=== PATIENT | female | born 1990 | race American Indian/Alaskan Native ===

== ENCOUNTER 2016-08-31 16:22 | Emergency (ER) | payer BC ==
[2016-08-31 16:44] VITALS: BP 133/69; PULSE 127; TEMP 98.1; BMI 29.2
[2016-08-31] MEDS ORDERED: OXYCODONE/APAP 5/325MG COMBO TABLET PO ONE (17:22)
[2016-08-31] MEDS ORDERED: OXYCODONE/APAP 5/325MG COMBO TABLET ONE (17:34)
--- NOTE | 2016-08-31 18:04 | PDOC ---
History of Present Illness - General Chief Complaint: Burn Stated Complaint: LT HAND BURN Time Seen by Provider: 08/31/16 17:11 History Source: Patient Exam Limitations: No Limitations - History of Present Illness Initial Comments: 08/31/16 17:59 pain to left ring finger post burn with hot glue today Occurred: reports: just prior to arrival Severity: reports: mild Pain Location: reports: upper extremity (finger) Past History - Past Medical History Allergies/Adverse Reactions: Allergies Allergy/AdvReac Type Severity Reaction Status Date / Time No Known Allergies Allergy Verified 08/31/16 16:40 Home Medications: Ambulatory Orders Amox-Tr/K Cl [Augmentin - 875Mg Tablet] 1 tab PO BID #14 tablet 08/31/16 Other medical history: DENIES. - Psycho/Social/Smoking Cessation Hx Anxiety: No Suicidal Ideation: No Smoking History: Never smoked Hx Alcohol Use: No Drug/Substance Use Hx: No Substance Use Type: None Review of Systems - Review of Systems Constitutional: No: Symptoms Reported HEENTM: No: Symptoms Reported Respiratory: No: Symptoms reported Musculoskeletal: Yes: Joint Pain, Other. No: Symptoms Reported, Joint Swelling Integumentary: Yes: Other (broken blister to dorsal area ST over middle phalange ; MOves) Neurological: No: Symptoms reported *Physical Exam - Vital Signs Last Vital Signs Temp Pulse Resp BP Pulse Ox 98.1 F 127 H 22 133/69 99 08/31/16 16:40 08/31/16 16:40 08/31/16 16:40 08/31/16 16:40 08/31/16 16:40 - Physical Exam General Appearance: Yes: Appropriately Dressed HEENT: positive: TMs Normal, Pharynx Normal Respiratory/Chest: positive: Lungs Clear Extremity: positive: Other (open blister to dorsal surface ST over middle phalange; FROM of PIP/ DIP; volar surfaces clear) ED Treatment Course - ADDITIONAL ORDERS Additional order review: Laboratory Results 08/31/16 17:26 Urine HCG, Qual Negative - Medications Given in the ED: ED Medications Discontinued Medications Generic Name Dose Route Start Last Admin Trade Name Freq PRN Reason Stop Dose Admin Oxycodone/Acetaminophen 1 combo 08/31/16 17:22 08/31/16 17:35 Percocet 5/325 - PO 08/31/16 17:23 1 combo ONCE ONE Administration Medical Decision Making - Medical Decision Making 08/31/16 18:[address] pt on augmentin as per LMD Dr Carpenter *DC/Admit/Observation/Transfer Diagnosis at time of Disposition: Burn of finger Qualifiers: Encounter type: initial encounter Laterality: left Burn degree: second degree Qualified Code(s): T23.222A - Burn of second degree of single left finger (nail ) except thumb, initial encounter - Discharge Dispostion Disposition: HOME Condition at time of disposition: Stable Admit: No - Patient Instructions Additional Instructions: please see local MD in 2 days for wound check; advcil for pain - Post Discharge Activity Work/School Note: Back to Work
[2016-08-31] MEDS ORDERED: SILVER SULFADIAZINE 1% TOP CREAM 50 GM JAR TP ONE (18:10)
[2016-08-31] MEDS ORDERED: SILVER SULFADIAZINE 1% TOP CREAM 50 GM JAR TP SCH (22:00)
== END 2016-08-31 18:30 | disposition home or self-care (01) ==
LOC: SUPCPDRO 16:22 → JERFT 16:22
PROC: 2W2KX4Z Dressing of Left Finger using Bandage (ICD-10-PCS; principal; 2016-08-31)
DX: T23.222A Burn of second degree of single left finger (nail) except thumb, initial encounter (principal); X19.XXXA Contact with other heat and hot substances, initial encounter; Y93.89 Activity, other specified; Y92.019 Unspecified place in single-family (private) house as the place of occurrence of the external cause
CPT/HCPCS: 84703; 99281-25

== ENCOUNTER 2016-11-08 13:30 | Emergency (ER) | payer BC ==
[2016-11-08 13:48] VITALS: BP 120/70; PULSE 98; TEMP 97.8; BMI 29.2
--- NOTE | 2016-11-08 14:31 | PDOC ---
History of Present Illness - General Chief Complaint: Bone Injury Stated Complaint: INJURY Time Seen by Provider: 11/08/16 13:54 History Source: Patient Exam Limitations: No Limitations - History of Present Illness Initial Comments: 11/08/16 14:23 CHIEF COMPLAINT: Left Elbow injury HISTORY OF PRESENT ILLNESS: Pt is a 26 year old female, presents to the ER for evaluation of right elbow pain after hitting it against the wall. Lateral elbow swelling, and bruise noted. Pain with ROM. 11/08/16 15:01 Past History - Past Medical History Allergies/Adverse Reactions: Allergies Allergy/AdvReac Type Severity Reaction Status Date / Time No Known Allergies Allergy Verified 11/08/16 13:43 Home Medications: Ambulatory Orders NK [No Known Home Medication] 11/08/16 Thyroid Disease: No Other medical history: denies domestic abuse - Psycho/Social/Smoking Cessation Hx Anxiety: No Suicidal Ideation: No Smoking History: Never smoked Have you smoked in the past 12 months: No Information on smoking cessation initiated: No Hx Alcohol Use: No Drug/Substance Use Hx: No Substance Use Type: None Review of Systems - Review of Systems Constitutional: No: Symptoms Reported HEENTM: No: Symptoms Reported Respiratory: No: Symptoms reported Cardiac (ROS): No: Symptoms Reported ABD/GI: No: Symptoms Reported : No: Symptoms Reported Musculoskeletal: Yes: Joint Pain, Joint Swelling Integumentary: Yes: Symptoms Reported, Bruising. No: Erythema Neurological: No: Symptoms reported, Paresthesia, Tingling, Tremors, Weakness All Other Systems: Reviewed and Negative *Physical Exam - Vital Signs Last Vital Signs Temp Pulse Resp BP Pulse Ox 97.8 F 98 H 18 120/70 100 11/08/16 13:41 11/08/16 13:41 11/08/16 13:41 11/08/16 13:41 11/08/16 13:41 - Physical Exam General Appearance: Yes: Appropriately Dressed. No: Apparent Distress Neck: negative: Tender lateral, Tender midline Respiratory/Chest: positive: Lungs Clear, Normal Breath Sounds Cardiovascular: positive: Regular Rhythm, Regular Rate Extremity: positive: Normal Capillary Refill, Normal Inspection Integumentary: positive: Erythema, Swelling, Bruising. negative: Ecchymosis Neurologic: positive: Alert, Normal Mood/Affect ED Treatment Course - RADIOLOGY Radiology Studies Ordered: Category Date Time Status ELBOW-LEFT [RAD] Stat Radiology 11/08/16 13:54 Taken Medical Decision Making - Medical Decision Making 11/08/16 15:02 A/P: Patient with left elbow pain, swelling and bruising, x-ray was negative for acute fracture patient given Motrin 600 mg. Sling placed on for comfort. Patient will follow up with Momo Thornton who she is seeing for finger injury. I discussed the physical exam findings, ancillary test results and final diagnoses with the patient. I answered all of the patient's questions. The patient was satisfied with the care received and felt comfortable with the discharge plan and treatment plan. The patient will call to arrange follow-up and will return to the Emergency Department with any new, persistent or worsening symptoms. *DC/Admit/Observation/Transfer Diagnosis at time of Disposition: Traumatic hematoma of left elbow Qualifiers: Encounter type: initial encounter Qualified Code(s): S50.02XA - Contusion of left elbow, initial encounter - Discharge Dispostion Disposition: HOME Condition at time of disposition: Stable Admit: No - Referrals Referrals: Sukhwinder Carpenter MD [Primary Care Provider] - Damian Barr MD [Staff Physician] - - Patient Instructions Printed Discharge Instructions: How to Use a Sling Additional Instructions: 1. Please return to the emergency department with any redness, swelling, increased pain, or any other concerns. 2. Keep splint on if pain 3. Please follow up in the office of Dr. Barr within a week if pain persists. 4. No weightbearing 5. Ice and elevate when at rest. 6. Motrin for pain - Post Discharge Activity Work/School Note: Back to Work
[2016-11-08] MEDS ORDERED: IBUPROFEN 600 MG TABLET (FP) PO ONE ×2 (14:43→14:46)
== END 2016-11-08 14:49 | disposition home or self-care (01) ==
LOC: JER 13:30 → JERFT 13:30
DX: S50.02XA Contusion of left elbow, initial encounter (principal); W22.8XXA Striking against or struck by other objects, initial encounter; Y93.9 Activity, unspecified; Y92.9 Unspecified place or not applicable
CPT/HCPCS: 73070-TC-LT; 99281-25

== ENCOUNTER 2019-02-09 16:26 | Inpatient (IN) | payer BC, OTHER ==
[2019-02-09] MEDS ORDERED: ONDANSETRON 4 MG/2 ML VIAL IVPB ONE (16:35)
[2019-02-09] MEDS ORDERED: SODIUM CHLORIDE 0.9% 500 ML INFUS.BAG IV ONE (16:35)
[2019-02-09] MEDS ORDERED: ACETAMINOPHEN 1000 MG/100 ML VIAL (NON FORMULARY) IVPB ONE (16:35)
--- NOTE | 2019-02-09 16:48 | PDOC ---
Rapid Medical Evaluation Chief Complaint: Nausea/Vomiting Time Seen by Provider: 02/09/19 16:31 Medical Evaluation: Allergies Allergy/AdvReac Type Severity Reaction Status Date / Time No Known Allergies Allergy Verified 02/09/19 16:30 02/09/19 16:32 28 year old NVD and right sided abdominal pain x1 week. patient noted to be febrile PE; patient alert ox3 RUQ pain on palpation A: Nausea, P: labs urine US LMP: 01/30/2019 02/09/19 16:48 Discharge Disposition - Diagnosis Nausea & vomiting Qualifiers: Vomiting type: unspecified Vomiting Intractability: unspecified Qualified Code( s): R11.2 - Nausea with vomiting, unspecified - Referrals Referrals: Sukhwinder Carpenter MD [Primary Care Provider] - - Patient Instructions - Post Discharge Activity
[2019-02-09 17:33] LABS: BASO % 0.8 % (0-2.0); EOS % 0.4 % (0-4.5); HEMATOCRIT 36.2 % (32.4-45.2); HEMOGLOBIN 11.7 GM/dL (10.7-15.3); LYMPH % 21.5 % (8-40); MCH 26.9 pg (25.7-33.7); MCHC 32.3 g/dl (32.0-36.0); MEAN CELL VOLUME 83.5 fl (80-96); MEAN PLT VOLUME 7.5 fl (7.5-11.1); MONO % 2.1 % (3.8-10.2); NEUT % 75.2 % (42.8-82.8); PLATELET COUNT 418 K/MM3 (134-434); RBC 4.33 M/mm3 (3.60-5.2); RDW 14.1 % (11.6-15.6); WHITE BLOOD COUNT 12.7 K/mm3 (4.0-10.0)
[2019-02-09] MEDS ORDERED: ONDANSETRON 4 MG/2 ML VIAL ONE (17:37)
[2019-02-09] MEDS ORDERED: ACETAMINOPHEN INJECTION 100 ML IVPB ONE (17:37)
[2019-02-09 17:40] LABS: EPI CELLS 10.2 /HPF (0-5/HPF); HYALINE CASTS 11 /lpf (0-8); PH,URINE 6.5 (5.0-8.0); URINE APPEARANCE CLEAR; URINE BACTERIA 80.3 /hpf (NEGATIVE); URINE BILIRUBIN 1+ (NEGATIVE); URINE COLOR DK YELLOW; URINE GLUCOSE (UA) NEGATIVE (NEGATIVE); URINE KETONE 1+ (NEGATIVE); URINE LEUK ESTERASE 2+ (NEGATIVE); URINE NITRITE NEGATIVE (NEGATIVE); URINE PROTEIN 1+ (NEGATIVE); URINE WBC 5 /hpf (0-5)
--- NOTE | 2019-02-09 17:59 | PDOC ---
History of Present Illness - General Chief Complaint: Nausea/Vomiting Stated Complaint: SENT BY DR. CARPENTER Time Seen by Provider: 02/09/19 16:31 History Source: Patient Exam Limitations: No Limitations - History of Present Illness Initial Comments: 02/09/19 18:05 28 yo F with no past medical hx presents to the emergency department with fevers , N/V/D without blood, and abdominal pain in the LLQ and epigastric region for 6 days. Per the patient, she has had multiple vomiting episodes per day since onset of symptoms and for the past 2 days developed dysuria. Per the patient, she last took DayQuil at 3 pm today. No abx usage. She visited her PMD today ( Dr. Carpenter) who referred her to the emergency department. Of note, drinking red Gatorade. Allergies: NKDA Social: Denies tobacco, alcohol, and substance abuse Shx: Tonsilectomy Past History - Past Medical History Allergies/Adverse Reactions: Allergies Allergy/AdvReac Type Severity Reaction Status Date / Time No Known Allergies Allergy Verified 02/09/19 16:30 Home Medications: Ambulatory Orders NK [No Known Home Medication] 11/08/16 COPD: No Thyroid Disease: No - Immunization History Immunization Up to Date: Yes - Suicide/Smoking/Psychosocial Hx Smoking History: Never smoked Have you smoked in the past 12 months: No Hx Alcohol Use: No Drug/Substance Use Hx: No Substance Use Type: None Review of Systems - Review of Systems Able to Perform ROS?: Yes Is the patient limited Japanese proficient: No Constitutional: Yes: Fever. No: Chills, Diaphoresis, Weakness HEENTM: No: Eye Pain, Ear Pain, Nose Pain, Tinnitus, Throat Pain, Mouth Pain Respiratory: No: Cough, Shortness of Breath, Hemoptysis Cardiac (ROS): No: Chest Pain, Lightheadedness, Palpitations, Syncope, Chest Tightness ABD/GI: Yes: Diarrhea, Nausea, Poor Appetite, Poor Fluid Intake, Vomiting, Abdominal cramping. No: Constipated, Rectal Bleeding, Tarry Stools : Yes: Dysuria. No: Burning, Hematuria, Incontinence Musculoskeletal: No: Back Pain, Joint Pain, Neck Pain Integumentary: No: Bruising, Erythema, Rash Neurological: No: Headache, Numbness, Tingling, Tremors Psychiatric: No: Change in Appetite Endocrine: No: Unexplained Weight Gain Hematologic/Lymphatic: No: Anemia *Physical Exam - Vital Signs Last Vital Signs Temp Pulse Resp BP Pulse Ox 102.2 F H 136 H 18 123/80 97 02/09/19 16:30 02/09/19 16:30 02/09/19 16:30 02/09/19 16:30 02/09/19 16:30 - Physical Exam General Appearance: Yes: Nourished, Appropriately Dressed. No: Apparent Distress, Intoxicated HEENT: positive: EOMI, NAJMA, Normal Voice, Symmetrical, Pharynx Normal, Hearing Grossly Normal. negative: Pale Conjunctivae, Scleral Icterus (R), Scleral Icterus (L), Muffled/Hoarse voice, Pharyngeal Erythema, Nasal Congestion, Rhinorrhea, Sinus Tenderness Neck: positive: Trachea midline, Supple. negative: Tender, Lymphadenopathy (R) , Lymphadenopathy (L), Tender lateral, Tender midline Respiratory/Chest: positive: Lungs Clear, Normal Breath Sounds. negative: Chest Tender, Respiratory Distress, Accessory Muscle Use, Crackles, Rales, Rhonchi, Stridor, Wheezing Cardiovascular: positive: Regular Rhythm, S1, S2, Tachycardia. negative: Systolic Murmur Gastrointestinal/Abdominal: positive: Normal Bowel Sounds, Tender (LLQ, epigastric, RUQ with positive murphys), Flat, Soft. negative: Distended, Guarding, Rebound Lymphatic: negative: Adenopathy Musculoskeletal: positive: Normal Inspection, CVA Tenderness (R), CVA Tenderness (L). negative: Vertebral Tenderness Extremity: positive: Normal Capillary Refill, Normal Inspection, Normal Range of Motion. negative: Tender, Swelling, Calf Tenderness Integumentary: positive: Normal Color, Dry, Other (hot to touch) Neurologic: positive: chicken sexer II-XII NML intact, Fully Oriented, Alert, Normal Mood/ Affect, Normal Response, Motor Strength 5/5. negative: EOM Palsy, Facial Droop , Numbness, Sensory Deficit ED Treatment Course - LABORATORY CBC & Chemistry Diagram: 02/09/19 16:57 02/09/19 16:57 - ADDITIONAL ORDERS Additional order review: Laboratory Results 02/09/19 02/09/19 16:57 16:57 Urine Color Dk yellow Urine Appearance Clear Urine pH 6.5 Ur Specific [place] 1.021 Urine Protein 1+ H Urine Glucose (UA) Negative Urine Ketones 1+ H Urine Blood 1+ H Urine Nitrite Negative Urine Bilirubin 1+ H Urine Urobilinogen 2.0 H Ur Leukocyte Esterase 2+ H Urine WBC (Auto) 5 Urine Casts (Auto) 11 U Epithel Cells (Auto) 10.2 Urine Bacteria (Auto) 80.3 Urine HCG, Qual Negative 02/09/19 16:57 RBC 4.33 MCV 83.5 MCHC 32.3 RDW 14.1 MPV 7.5 Neutrophils % 75.2 Lymphocytes % 21.5 Monocytes % 2.1 L Eosinophils % 0.4 Basophils % 0.8 - Medications Given in the ED: ED Medications Discontinued Medications Generic Name Dose Route Start Last Admin Trade Name Neeraj PRN Reason Stop Dose Admin Acetaminophen 1,000 mg 02/09/19 16:35 02/09/19 17:50 Ofirmev Injection - IVPB 02/09/19 16:36 1,000 mg ONCE ONE Administration Ondansetron HCl 4 mg 02/09/19 16:35 02/09/19 17:50 Zofran Injection IVPB 02/09/19 16:36 4 mg ONCE ONE Administration Sodium Chloride 1,000 ml 02/09/19 16:35 02/09/19 17:49 Normal Saline - IV 02/09/19 16:36 1,000 ml ONCE ONE Administration Medical Decision Making - Medical Decision Making 28 yo F with no past medical hx presents to the emergency department with fevers , N/V/D without blood, and abdominal pain in the LLQ and epigastric region for 6 days. Initial vitals: Initial Vital Signs Temp Pulse Resp BP Pulse Ox 102.2 F H 136 H 18 123/80 97 02/09/19 16:30 02/09/19 16:30 02/09/19 16:30 02/09/19 16:30 02/09/19 16:30 Work up: ddx: UTI vs pyelonephritis vs colitis vs cholelithiasis vs cholecystitis vs gastritis vs pancreatitis POCUS shows no GB wall thickening, no CBD dilatation, and no pericholecystic fluid. No cholelithiasis. Laboratory Tests 02/09/19 02/09/19 02/09/19 16:57 16:57 16:57 WBC 12.7 H RBC 4.33 Hgb 11.7 Hct 36.2 MCV 83.5 MCH 26.9 MCHC 32.3 RDW 14.1 Plt Count 418 MPV 7.5 Absolute Neuts (auto) 9.6 H Neutrophils % 75.2 Lymphocytes % 21.5 Monocytes % 2.1 L Eosinophils % 0.4 Basophils % 0.8 Nucleated RBC % 0 Sodium 136 Potassium 3.7 Chloride 101 Carbon Dioxide 25 Anion Gap 11 BUN 7.5 Creatinine 0.6 Est GFR (CKD-EPI)AfAm 145.80 Est GFR (CKD-EPI)NonAf 125.80 Random Glucose 84 Calcium 9.0 Total Bilirubin 0.7 AST 27 ALT 26 Alkaline Phosphatase 118 H Total Protein 8.0 Albumin 3.4 Lipase 77 Urine Color Urine Appearance Urine pH Ur Specific [place] Urine Protein Urine Glucose (UA) Urine Ketones Urine Blood Urine Nitrite Urine Bilirubin Urine Urobilinogen Ur Leukocyte Esterase Urine WBC (Auto) Urine RBC (Auto) Urine Casts (Auto) U Epithel Cells (Auto) U Sm Round Cell (Auto) Urine Bacteria (Auto) Urine Yeast (Auto) Urine HCG, Qual Negative Blood Type Antibody Screen 02/09/19 02/09/19 16:57 19:40 WBC RBC Hgb Hct MCV MCH MCHC RDW Plt Count MPV Absolute Neuts (auto) Neutrophils % Lymphocytes % Monocytes % Eosinophils % Basophils % Nucleated RBC % Sodium Potassium Chloride Carbon Dioxide Anion Gap BUN Creatinine Est GFR (CKD-EPI)AfAm Est GFR (CKD-EPI)NonAf Random Glucose Calcium Total Bilirubin AST ALT Alkaline Phosphatase Total Protein Albumin Lipase Urine Color Dk yellow Urine Appearance Clear Urine pH 6.5 Ur Specific [place] 1.021 Urine Protein 1+ H Urine Glucose (UA) Negative Urine Ketones 1+ H Urine Blood 1+ H Urine Nitrite Negative Urine Bilirubin 1+ H Urine Urobilinogen 2.0 H Ur Leukocyte Esterase 2+ H Urine WBC (Auto) 5 Urine RBC (Auto) 5-8 Urine Casts (Auto) 11 U Epithel Cells (Auto) 10.2 U Sm Round Cell (Auto) Negative Urine Bacteria (Auto) 80.3 Urine Yeast (Auto) Negative Urine HCG, Qual Blood Type B POSITIVE Antibody Screen Negative negative . UA shows UTI. Leukocytosis is 12.7. Patient's CT abdomen and pelvis shows "mildly increased fluid is seen within the large and possibly small bowel suggestive of current diarrheal illness. There is no obvious associated wall edema or perienteric/pericolonic edena". Of note the patient has interstitial thickening of acute or chronic nature in the lungs. Per the patient, she states she smokes hookah every 3 months. No exposure to industrial solvents or environments and did not travel overseas. 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 She continues to have a fever s/p 1 gram of tylenol and tachycardia. Will admit patient. EKG: Sinus tachycardia without ST elevation or depression Dispo: Admit 02/09/19 21:57 02/09/19 22:11 *DC/Admit/Observation/Transfer Diagnosis at time of Disposition: Nausea & vomiting Qualifiers: Vomiting type: unspecified Vomiting Intractability: unspecified Qualified Code( s): R11.2 - Nausea with vomiting, unspecified - Referrals Referrals: Sukhwinder Carpenter MD [Primary Care Provider] - - Patient Instructions - Post Discharge Activity
[2019-02-09] MEDS ORDERED: SODIUM CHLORIDE 1,000 ML IV STA ×2 (18:01)
[2019-02-09 18:04] LABS: YEAST NEGATIVE (NEGATIVE)
[2019-02-09 18:07] LABS: ALBUMIN 3.4 g/dl (3.4-5.0); BILIRUBIN,TOTAL 0.7 mg/dL (0.2-1); BLOOD UREA NITROGEN 7.5 mg/dL (7-18); CREATININE 0.6 mg/dL (0.55-1.3); POTASSIUM 3.7 mmol/L (3.5-5.1)
--- NOTE | 2019-02-09 18:33 | PDOC ---
Documentation entered by Andreas Liu SCRIBE, acting as scribe for Yenny Ramsey DO. Yenny Ramsey, : This documentation has been prepared by the Alexa ortega Xhesika, SCRIBE, under my direction and personally reviewed by me in its entirety. I confirm that the documentation accurately reflects all work, treatment, procedures, and medical decision making performed by me. Attending Attestation - Resident Resident Name: Dash Balderrama - ED Attending Attestation I have performed the following: I have examined & evaluated the patient, The case was reviewed & discussed with the resident, I agree w/resident's findings & plan, Exceptions are as noted - HPI HPI: 02/09/19 18:15 The patient is a 28 year old female with no significant PMH of who presents to the emergency department for 1 week of nausea, nbnb vomiting, non bloody diarrhea, and fever. The patient reports she has been drinking Gatorade and water. Patient notes she endorses epigastric pain, LLQ pain, R CVA tenderness, and dysuria. The patient denies chest pain, shortness of breath, headache and dizziness. Denies chills, cough, and constipation. Denies, frequency, urgency and hematuria. Allergies: NKDA Past surgical history: tonsillectomy PCP: Dr. Carpenter - Physicial Exam PE: 02/09/19 18:16 GENERAL: Awake, alert, and fully oriented, in no acute distress HEAD: No signs of trauma EYES: PERRLA, EOMI, sclera anicteric, conjunctiva clear ENT: Auricles normal inspection, hearing grossly normal, nares patent, oropharynx clear without exudates. (+) dry mucosa LUNGS: Breath sounds equal, clear to auscultation bilaterally. No wheezes, and no crackles HEART: (+) tachy., normal S1 and S2, no murmurs, rubs or gallops ABDOMEN: Soft, nontender, normoactive bowel sounds. No guarding, no rebound. No masses EXTREMITIES: (+) LLQ tenderness. (+) Epigastric tenderness. (+) R CVA tenderness. Normal range of motion, no edema. No clubbing or cyanosis. No cords , erythema. NEUROLOGICAL: Cranial nerves II through XII grossly intact. Normal speech, normal gait SKIN: (+) Warm to touch. Dry, normal turgor, no rashes or lesions noted - Medical Decision Making 02/09/19 18:29 I, Dr. Yenny Rasmey, DO, attest that this document has been prepared under my direction and personally reviewed by me in its entirety. I further attest, that it accurately reflects all work, treatment, procedures and medical decision -making performed by me. 02/09/19 18:29 a/p: 28yo female with no pmhx with a week of n/v/d and abd pain -pt with R flank pain, LLQ pain, and dysuria -pt with nbnb vomiting, no blood in stool -pt arrives with SIRS criteria -pt without recent abx -no vaginal complaints -concern for colitis vs uti with pyelo -bedside focused ultrasound of the RUQ was negative for acute kandis, no stones, no pericholecystic fluid, neg sono murphys -bedside ultrasound of the kidneys was neg for hydro -will send for ct imaging -labs sent, urine and urine culture, upreg -will give ivf hydration, tylenol 02/09/19 20:37 no acute findings on ct pt with uti abx ordered diarrhea illness on ct 02/09/19 20:39 pt now admits to contact with a pt with rickie recently at [facility] where she works will send cdiff stool sample will start flagyl 02/09/19 21:32 microblog sent to [facility] for admission 02/09/19 21:58 pt discussed the case with [facility] who accepts pt to service Heart Score/ECG Review - ECG Intrepretation Comment:: 02/09/19 18:33 sinus tach at 123, nl axis, nl interval, no acute st/t wave findings
[2019-02-09] MEDS ORDERED: CEFTRIAXONE 1,000 MG in DEXTROSE 5%-WATER - 50 ML IVPB ONE (19:26)
[2019-02-09] MEDS ORDERED: CEFTRIAXONE 1 GM/50 ML BAG ONE (19:49)
[2019-02-09] MEDS ORDERED: KETOROLAC TROMETHAMINE 15 MG/ML VIAL IVPUSH ONE (20:33)
[2019-02-09] MEDS ORDERED: KETOROLAC TROMETHAMINE 15 MG/ML VIAL ONE (21:58)
--- NOTE | 2019-02-09 22:13 | PN ---
Teaching Attending Note Name of Resident: Brown Cobos ATTENDING PHYSICIAN STATEMENT I saw and evaluated the patient. I reviewed the resident's note and discussed the case with the resident. I agree with the resident's findings and plan as documented. 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 Per the patient, she has had multiple vomiting episodes per day since onset of symptoms and for the past 2 days developed dysuria. Patient last took DayQuil at 3 pm today. No antibiotic usage. Believes she was exposed to a patient with C.diff infection. She visited her PMD today (Dr. Carpenter) who referred her to the ER and she has been drinking red Gatorade. Patient denies chest pain, shortness of breath, headache and dizziness. Denies chills, cough, and constipation. Denies, frequency, urgency and hematuria. Denies tobacco use, alcohol, and substance abuse. Has FH of DM. LMP was 01/30/19. OBJECTIVE: Alert Vital Signs Period Temp Pulse Resp BP Sys/Pena Pulse Ox Last 24 Hr 100.6 F-102.2 F 112-136 18-20 118-123/64-80 97-100 HEENT: No Jaundice, eye redness or discharge, PERRLA, EOMI. Normocephalic, atraumatic. External ears are normal and hearing is grossly intact. No nasal discharge. Neck: Supple, nontender. No palpable adenopathy or thyromegaly. No JVD Chest: Good effort. Clear to auscultation and percussion. Heart: Regular. No S3, rub or murmur Abdomen: Not distended, soft, LLQ, epigastric, and periumblical tenderness; no HSM. No rebound or guarding. Normal bowel sounds. Ext: Peripheral pulses intact. No leg edema. Skin: Warm and dry. No petechiae, rash or ecchymosis. Neuro: Alert. Oriented x3. CN 2-12 grossly intact. Sensation grossly intact in all four extremities and DTR are symmetric. Psych: Appropriate mood and affect. Good insight. Current Medications Generic Name Dose Route Start Last Admin Trade Name Freq PRN Reason Stop Dose Admin Enoxaparin Sodium 40 mg 02/10/19 10:00 Lovenox - SQ DAILY ADAM Sodium Chloride 1,000 mls @ 100 mls/hr 02/10/19 00:30 Normal Saline - IV ASDIR [facility] Home Medications Medication Instructions Recorded NK [No Known Home Medication] 11/08/16 Abnormal Lab Results 02/09/19 02/09/19 02/09/19 16:57 16:57 16:57 WBC 12.7 H Absolute Neuts (auto) 9.6 H Monocytes % 2.1 L Alkaline Phosphatase 118 H Urine Protein 1+ H Urine Ketones 1+ H Urine Blood 1+ H Urine Bilirubin 1+ H Urine Urobilinogen 2.0 H Ur Leukocyte Esterase 2+ H ASSESSMENT AND PLAN: 1. Sepsis due to ?UTI/Gastroenteritis - Likely has UTI though urine has only 5 WBCS. Preliminary report of CT scan of abdomen/pelvis showed fluid in the small intestine. Will continue Rocephin for IV and IV NS according to sepsis protocol. Etiology of gastroenteritis is unclear. Stool being sent for C.diff, WBCs, culture, ova and parasites. Will continue IV flagyl for possible C.Diff infection pending test result. EKG and CXR pending. Consult GI and ID. 2. Overweight Counseled on the risks associated with being overweight. Will provide patient all the necessary assistance, counseling and positive reinforcement to facilitate weight loss. Consult cartography professor. 3. DVT prophylaxis - Lovenox 40 mg SQ q 24 hours. 4. Advance directives - Full code
[2019-02-10] MEDS ORDERED: SODIUM CHLORIDE 1,000 ML IV SCH ×2 (00:30→06:25)
--- NOTE | 2019-02-10 02:44 | HP ---
CHIEF COMPLAINT: Diarrhea, vomiting, and abdominal pain in the umbilicus and RLQ for the past 1 week PCP: Dr. Carpenter HISTORY OF PRESENT ILLNESS: This is a 28 year old female with no significant PMH. She presented to the ER with complaints of diarrhea, vomiting, and abdominal pain in the umbilicus and RLQ for the past 1 week. The pain was gradual in onset, varies between 6-9/10 intensity, is described as being "dull", in intermittent in anture, non- radiating, with no recognized aggravating or alleviating factors. She has had diarrhea over the past week, described as dark in color, with 5-10 episodes per day, with no blood noticed, and has lost 7 pounds over the past week. She has also had multiple episodes of yellow vomiting, usually brought on by eating solid food. She has associated nausea and fever (recorded between 99-101 over several readings taken at home over the week). 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 She also complains of associated dysuria and urinary urgency over the past week. There are no associated complaints of dizziness, SOB, chest pain, constipation, or hematuria. ER course was notable for: (1) CTAP: fluid in small and large bowels consistet with diarrhea, but no edema noted (2) Ceftriaxone 1g/Metronidazole 500mg/3x N/S 1000 (3) T 010.8, Pulse 112 Recent Travel: None PAST MEDICAL HISTORY: None PAST SURGICAL HISTORY: None Social History: Smoking: denies Alcohol: denies Drugs: denies Family History: Both parents have DM Allergies No Known Allergies Allergy (Verified 02/09/19 16:30) HOME MEDICATIONS: Home Medications Medication Instructions Recorded NK [No Known Home Medication] 11/08/16 REVIEW OF SYSTEMS CONSTITUTIONAL: fever Absent: fever, chills, diaphoresis, generalized weakness, malaise, loss of appetite, weight change HEENT: Absent: rhinorrhea, nasal congestion, throat pain, throat swelling, difficulty swallowing, mouth swelling, ear pain, eye pain, visual changes CARDIOVASCULAR: Absent: chest pain, syncope, palpitations, irregular heart rate, lightheadedness , peripheral edema RESPIRATORY: Absent: cough, shortness of breath, dyspnea with exertion, orthopnea, wheezing, stridor, hemoptysis GASTROINTESTINAL:abdominal pain, nausea, vomiting, diarrhea Absent: abdominal pain, abdominal distension, nausea, vomiting, diarrhea, constipation, melena, hematochezia GENITOURINARY: dysuria, urgency Absent: dysuria, frequency, urgency, hesitancy, hematuria, flank pain, genital pain MUSCULOSKELETAL: Absent: myalgia, arthralgia, joint swelling, back pain, neck pain SKIN: Absent: rash, itching, pallor HEMATOLOGIC/IMMUNOLOGIC: Absent: easy bleeding, easy bruising, lymphadenopathy, frequent infections ENDOCRINE: Absent: unexplained weight gain, unexplained weight loss, heat intolerance, cold intolerance NEUROLOGIC: Absent: headache, focal weakness or paresthesias, dizziness, unsteady gait, seizure, mental status changes, bladder or bowel incontinence PSYCHIATRIC: Absent: anxiety, depression, suicidal or homicidal ideation, hallucinations. PHYSICAL EXAMINATION Vital Signs - 24 hr 02/09/19 02/09/19 02/10/19 16:30 19:55 00:20 Temperature 102.2 F H 101.8 F H 100.6 F H Pulse Rate 136 H Pulse Rate [ 112 H Right Radial] Respiratory 18 20 Rate Blood Pressure 123/80 Blood Pressure 118/64 [Left Arm] O2 Sat by Pulse 97 100 Oximetry (%) GENERAL: Awake, alert, and fully oriented, in no acute distress. HEAD: Normal with no signs of trauma. EYES: Pupils equal, round and reactive to light, extraocular movements intact, sclera anicteric, conjunctiva clear. No lid lag. EARS, NOSE, THROAT: Ears normal, nares patent, oropharynx clear without exudates. Moist mucous membranes. NECK: Normal range of motion, supple without lymphadenopathy, JVD, or masses. LUNGS: Breath sounds equal, clear to auscultation bilaterally. No wheezes, and no crackles. No accessory muscle use. HEART: Regular rate and rhythm, normal S1 and S2 without murmur, rub or gallop. ABDOMEN: Soft, mild tenderness in RLQ, no CVA tenderness, no hepatomegaly or splenomegaly. MUSCULOSKELETAL: Normal range of motion at all joints. No bony deformities or tenderness. No CVA tenderness. UPPER EXTREMITIES: 2+ pulses, warm, well-perfused. No cyanosis. No clubbing. No peripheral edema. LOWER EXTREMITIES: 2+ pulses, warm, well-perfused. No calf tenderness. No peripheral edema. NEUROLOGICAL: Cranial nerves II-XII intact. Normal speech. Normal gait. PSYCHIATRIC: Cooperative. Good eye contact. Appropriate mood and affect. SKIN: Warm, dry, normal turgor, no rashes or lesions noted, normal capillary refill. Laboratory Results - last 24 hr 02/09/19 02/09/19 02/09/19 16:57 16:57 16:57 WBC 12.7 H RBC 4.33 Hgb 11.7 Hct 36.2 MCV 83.5 MCH 26.9 MCHC 32.3 RDW 14.1 Plt Count 418 MPV 7.5 Absolute Neuts (auto) 9.6 H Neutrophils % 75.2 Lymphocytes % 21.5 Monocytes % 2.1 L Eosinophils % 0.4 Basophils % 0.8 Nucleated RBC % 0 Sodium 136 Potassium 3.7 Chloride 101 Carbon Dioxide 25 Anion Gap 11 BUN 7.5 Creatinine 0.6 Est GFR (CKD-EPI)AfAm 145.80 Est GFR (CKD-EPI)NonAf 125.80 Random Glucose 84 Calcium 9.0 Total Bilirubin 0.7 AST 27 ALT 26 Alkaline Phosphatase 118 H Total Protein 8.0 Albumin 3.4 Lipase 77 Urine Color Urine Appearance Urine pH Ur Specific [place] Urine Protein Urine Glucose (UA) Urine Ketones Urine Blood Urine Nitrite Urine Bilirubin Urine Urobilinogen Ur Leukocyte Esterase Urine WBC (Auto) Urine RBC (Auto) Urine Casts (Auto) U Epithel Cells (Auto) U Sm Round Cell (Auto) Urine Bacteria (Auto) Urine Yeast (Auto) Urine HCG, Qual Negative Blood Type Antibody Screen 02/09/19 02/09/19 16:57 19:40 WBC RBC Hgb Hct MCV MCH MCHC RDW Plt Count MPV Absolute Neuts (auto) Neutrophils % Lymphocytes % Monocytes % Eosinophils % Basophils % Nucleated RBC % Sodium Potassium Chloride Carbon Dioxide Anion Gap BUN Creatinine Est GFR (CKD-EPI)AfAm Est GFR (CKD-EPI)NonAf Random Glucose Calcium Total Bilirubin AST ALT Alkaline Phosphatase Total Protein Albumin Lipase Urine Color Dk yellow Urine Appearance Clear Urine pH 6.5 Ur Specific [place] 1.021 Urine Protein 1+ H Urine Glucose (UA) Negative Urine Ketones 1+ H Urine Blood 1+ H Urine Nitrite Negative Urine Bilirubin 1+ H Urine Urobilinogen 2.0 H Ur Leukocyte Esterase 2+ H Urine WBC (Auto) 5 Urine RBC (Auto) 5-8 Urine Casts (Auto) 11 U Epithel Cells (Auto) 10.2 U Sm Round Cell (Auto) Negative Urine Bacteria (Auto) 80.3 Urine Yeast (Auto) Negative Urine HCG, Qual Blood Type B POSITIVE Antibody Screen Negative ASSESSMENT/PLAN: # Sepsis 2/2 gastroenteritis - CTAP: fluid in small and large bowels consistet with diarrhea, but no edema noted - WBC 12.7 - C Diff, stool cx, and blood cx, urine cx sent - Will continue Ceftriaxone 1g and Metronidazole 500mg until stool culture - ID consult placed - GI consult placed #UTI - UA: LE 2+ (5 WBC and 80 Bacteria, so suspicion of UTI as cause of sepsis is low) - POC US in ER showed no hydronephrosis #Elevated ALP - POC US in ER showed no GB thickening, no CBD thickening, no chlolelithiasis #FEN - N/S @ 100 (3x 1000 N/S given in ER) - Mg, Phos ordered - Clear liquid diet #DVT PE - Lovenox 40mg #Code Status - Full code Visit type - Emergency Visit Emergency Visit: Yes ED Registration Date: 02/09/19 Care time: The patient presented to the Emergency Department on the above date and was hospitalized for further evaluation of their emergent condition. - New Patient This patient is new to me today: Yes Date on this admission: 02/10/19 - Critical Care Critical Care patient: No ATTENDING PHYSICIAN STATEMENT I saw and evaluated the patient. I reviewed the resident's note and discussed the case with the resident. I agree with the resident's findings and plan as documented. SUBJECTIVE: OBJECTIVE: ASSESSMENT AND PLAN:
[2019-02-10] MEDS ORDERED: ACETAMINOPHEN 325 MG TABLET (FP) ONE (06:56)
[2019-02-10 07:26] LABS: BASO % 0.3 % (0-2.0); EOS % 0.2 % (0-4.5); HEMATOCRIT 29.4 % (32.4-45.2); HEMOGLOBIN 9.8 GM/dL (10.7-15.3); LYMPH % 19.7 % (8-40); MCH 27.2 pg (25.7-33.7); MCHC 33.1 g/dl (32.0-36.0); MEAN CELL VOLUME 82.2 fl (80-96); MEAN PLT VOLUME 7.3 fl (7.5-11.1); MONO % 2.2 % (3.8-10.2); NEUT % 77.6 % (42.8-82.8); PLATELET COUNT 341 K/MM3 (134-434); RBC 3.58 M/mm3 (3.60-5.2); RDW 13.9 % (11.6-15.6); WHITE BLOOD COUNT 9.4 K/mm3 (4.0-10.0)
[2019-02-10] MEDS: ACETAMINOPHEN 325 MG TABLET (FP) PO PRN ×2 (07:55→18:24)
[2019-02-10 07:59] LABS: ALBUMIN 2.5 g/dl (3.4-5.0); BILIRUBIN,TOTAL 0.5 mg/dL (0.2-1); BLOOD UREA NITROGEN 4.6 mg/dL (7-18); CALCIUM 7.3 mg/dL (8.5-10.1); CREATININE 0.6 mg/dL (0.55-1.3); MAGNESIUM 2.3 mg/dL (1.8-2.4); PHOSPHOROUS 1.7 mg/dL (2.5-4.9); POTASSIUM 3.2 mmol/L (3.5-5.1)
[2019-02-10] MEDS ORDERED: CEFTRIAXONE 1,000 MG in DEXTROSE 5%-WATER - 50 ML IVPB SCH (10:00)
[2019-02-10] MEDS ORDERED: CEFTRIAXONE 1 GM/50 ML BAG ONE (10:16)
--- NOTE | 2019-02-10 10:30 | PN ---
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
[2019-02-10] MEDS: SODIUM CHLORIDE 0.9%/KCL 20 MEQ/1,000 ML INFUS.BAG IV SCH (10:39)
[2019-02-10] MEDS: ENOXAPARIN NA (PORCINE) 40 MG/0.4 ML DISP.SYRIN SQ SCH (10:39)
[2019-02-10] MEDS ORDERED: VANCOMYCIN 250 MG/5 ML ORAL SOLUTION PO SCH (12:00)
--- NOTE | 2019-02-10 12:14 | CON.GI ---
Consult Consult Specialty:: 0 Referred by:: Hospitalist Service Reason for Consultation:: Diarrhea - History of Present Illness Chief Complaint: Diarrhea History of Present Illness: 28F admitted through [facility] ER for evaluation of persistent nausea, vomiting and diarrhea. She states that she was in her USOH up until 7 days ago, when her symptoms began. The vomiting was non-bloody, non-bilious and has let up somewhat. She did vomit a small amount last night. The diarrhea has been described as non-bloody,watery, awakening her at night and occurring upwards of 5-8 times per day and describes as high volume. She has lost 8 pounds during this time. She denies recent travel, antibiotic use, OTC supplements, sick contacts with similar complaints, change in dietary habits. 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 There has been no associated rectal bleeding or bloody diarrhea, tenesmus, abdominal pain. She has had chills and fevers through the course and was noted to be 103F. Blood cx is + for gram + bacilli. She had a leukocytosis on admission with WBC 12k that has normalized. She had a CT scan of the abdomen and pelvis with IV contrast only that failed to reveal significant colitis or small bowel thickening. There was fluid in the colon and small bowel suggestive of a diarrhea process. - History Source History Provided By: Patient Limitations to Obtaining History: No Limitations - Past Medical History Additional Medical History: Denies - Past Surgical History Additional Surgical History: Denies - Alcohol/Substance Use Hx Alcohol Use: No - Smoking History Smoking history: Never smoked Have you smoked in the past 12 months: No - Social History Usual Living Arrangement: With Parent ADL: Independent Occupation: Nurse: Works at [employer] Place of : [employer] History of Recent Travel: No Home Medications - Allergies Allergies/Adverse Reactions: Allergies Allergy/AdvReac Type Severity Reaction Status Date / Time No Known Allergies Allergy Verified 02/09/19 16:30 - Home Medications Home Medications: Ambulatory Orders NK [No Known Home Medication] 11/08/16 Family Disease History - Family Disease History Family Disease History: Other: Father (Alive: healthy), Mother (Alive: healthy) , Sister (2, healthy) Other Family History: No children. No family history of colorectal cancer, IBD, Celiac disease Review of Systems - Review of Systems Constitutional: reports: Chills, Fever. denies: Night Sweats Cardiovascular: denies: Chest Pain Respiratory: denies: Cough Gastrointestinal: reports: Diarrhea, Vomiting. denies: Abdominal Pain, Rectal Bleeding, Vomiting Blood Physical Exam-GI Vital Signs: Vital Signs Temperature 98.1 F 02/10/19 11:15 Pulse Rate 102 H 02/10/19 11:15 Respiratory Rate 16 02/10/19 11:15 Blood Pressure 116/65 02/10/19 11:15 O2 Sat by Pulse Oximetry (%) 99 02/10/19 11:15 Constitutional: Yes: Calm Eyes: No: Sclera Icterus Cardiovascular: Yes: Tachycardia (regular rhtythm). No: Murmur Respiratory: Yes: CTA Bilaterally Gastrointestinal Inspection: No: Distention, Scars ...Auscultate: Yes: Normoactive Bowel Sounds ...Palpate: Yes: Soft, Tenderness (Mild TTP along LLQ and LUQ). No: Hepatomegaly, Splenomegaly ...Percussion: No: Tympanitic Edema: No (No LE edema) Neurological: Yes: Alert Labs: CBC, BMP 02/10/19 07:00 02/10/19 07:00 Hepatic Panel Total Bilirubin 0.5 mg/dL (0.2-1) 02/10/19 07:00 AST 30 U/L (15-37) 02/10/19 07:00 ALT 24 U/L (13-61) 02/10/19 07:00 Alkaline Phosphatase 98 U/L (45-117) 02/10/19 07:00 Albumin 2.5 g/dl (3.4-5.0) L 02/10/19 07:00 Imaging - Results Cat Scan: Report Reviewed, Image Reviewed Problem List - Problems (1) Vomiting and diarrhea Assessment/Plan: with associated fevers. Anika appears well clinically but had continued fevers up until admission. Leukocystosis has improved. acuity of her symptoms favors an infectious etiology such as viral or bacterial process. The description of her diarrhea favors small bowel origin as opposed to a colonic source such as colitis. ? if the + blood culture will sultana out to be related to her current clinical picture. Stool culture is pending as well as C. Diff. Legionella Ag has been collected Norovirus / rotavirus PCR stool studies have been ordered. I ordered stool for crypto / giardia Ag and fecal calprotectin. If diarrhea persists and there is no clear infectious etiology, flexible sigmoidoscopy would be undertaken to exclude an atypical presentation of inflammatory bowel disease. I have advanced her diet ID is following and has initiated infectious work-up as noted above We will follow along with you Code(s): R11.10 - VOMITING, UNSPECIFIED; R19.7 - DIARRHEA, UNSPECIFIED
[2019-02-10] MEDS ORDERED: AMPICILLIN SODIUM 2 GM VIAL ONE ×2 (12:59→18:10)
[2019-02-10] MEDS: AMPICILLIN - 2 GM in SODIUM CHLORIDE 100 ML IVPB SCH ×3 (13:00→22:13)
[2019-02-10] MEDS ORDERED: NAPH,MB-DB/K PH,MBDB POWDER PACKET PO SCH (14:00)
--- NOTE | 2019-02-10 14:05 | EKG ---
Test Reason : Blood Pressure : / mmHG Vent. Rate : 123 BPM Atrial Rate : 123 BPM P-R Int : 152 ms QRS Dur : 076 ms QT Int : 304 ms P-R-T Axes : 057 046 019 degrees QTc Int : 435 ms SINUS TACHYCARDIA NONSPECIFIC ST ABNORMALITY Confirmed by ALBERTO BARRAGAN MD ([id number]) on 02/10/2019 2:05:26 PM Referred By: Confirmed By:ALBERTO BARRAGAN MD
--- NOTE | 2019-02-10 15:59 | PN ---
Teaching Attending Note Name of Resident: Clark Moreira ATTENDING PHYSICIAN STATEMENT I saw and evaluated the patient. I reviewed the resident's note and discussed the case with the resident. I agree with the resident's findings and plan as documented with exceptions, below. SUBJECTIVE: patient seen and examined, Currently denies nausea, last episode of vomiting/ diarrhea, earlier this AM. Denies any abdominal pain, dark or bloody stools or vomitus. OBJECTIVE: Vital Signs Period Temp Pulse Resp BP Sys/Pena Pulse Ox Last 24 Hr 97.7 F-103.1 F 103-136 18-20 113-125/64-80 97-100 Intake & Output 02/07/19 02/08/19 02/09/19 02/10/19 23:59 23:59 23:59 23:59 Weight 154 lb General: sitting in bed in no acute distress Neck: soft, supple HEENT: PERRL, EOMI, moist mucous membrane CVS:S1S2 regular Chest: CTAB, no rales or wheezing Abdomen:soft, obese, mild LLQ tenderness, no voluntary or involuntary guarding or rigidity, pos bowel sounds Extremities: no edema Home Medications Medication Instructions Recorded NK [No Known Home Medication] 11/08/16 Active Medications Acetaminophen (Tylenol -) 650 mg PO Q6H PRN PRN Reason: PAIN OR FEVER Last Admin: 02/10/19 07:55 Dose: 650 mg Enoxaparin Sodium (Lovenox -) 40 mg SQ DAILY ADAM Last Admin: 02/10/19 10:39 Dose: 40 mg Ceftriaxone Sodium 1,000 mg/ (Dextrose) 50 mls @ 100 mls/hr IVPB DAILY ADAM Last Admin: 02/10/19 10:39 Dose: 100 mls/hr Potassium Chloride/Sodium Chloride (Ns+20 Meq Kcl -) 20 meq in 1,000 mls @ 125 mls/hr IV ASDIR ADAM Last Admin: 02/10/19 10:39 Dose: 125 mls/hr Metronidazole (Flagyl 500mg Premixed Ivpb -) 500 mg in 100 mls @ 100 mls/hr IVPB Q8H-IV ADAM Ampicillin Sodium 2 gm/ Sodium (Chloride) 100 mls @ 200 mls/hr IVPB Q6H-IV ADAM ; Protocol Last Admin: 02/10/19 13:00 Dose: 200 mls/hr Potassium Phos/Sodium Phos (Phos-Nak Packet -) 1 packet PO TID ADAM Stop: 02/11/19 06:01 Laboratory Results - last 24 hr 02/09/19 02/09/19 02/09/19 10:00 16:57 16:57 WBC 12.7 H RBC 4.33 Hgb 11.7 Hct 36.2 MCV 83.5 MCH 26.9 MCHC 32.3 RDW 14.1 Plt Count 418 MPV 7.5 Absolute Neuts (auto) 9.6 H Neutrophils % 75.2 Lymphocytes % 21.5 Monocytes % 2.1 L Eosinophils % 0.4 Basophils % 0.8 Nucleated RBC % 0 Sodium 136 Potassium 3.7 Chloride 101 Carbon Dioxide 25 Anion Gap 11 BUN 7.5 Creatinine 0.6 Est GFR (CKD-EPI)AfAm 145.80 Est GFR (CKD-EPI)NonAf 125.80 Random Glucose 84 Calcium 9.0 Phosphorus Magnesium Total Bilirubin 0.7 AST 27 ALT 26 Alkaline Phosphatase 118 H Total Protein 8.0 Albumin 3.4 Lipase 77 Urine Color Urine Appearance Urine pH Ur Specific [place] Urine Protein Urine Glucose (UA) Urine Ketones Urine Blood Urine Nitrite Urine Bilirubin Urine Urobilinogen Ur Leukocyte Esterase Urine WBC (Auto) Urine RBC (Auto) Urine Casts (Auto) U Epithel Cells (Auto) U Sm Round Cell (Auto) Urine Bacteria (Auto) Urine Yeast (Auto) Urine HCG, Qual Blood Type B POSITIVE Antibody Screen 02/09/19 02/09/19 02/09/19 16:57 16:57 19:40 WBC RBC Hgb Hct MCV MCH MCHC RDW Plt Count MPV Absolute Neuts (auto) Neutrophils % Lymphocytes % Monocytes % Eosinophils % Basophils % Nucleated RBC % Sodium Potassium Chloride Carbon Dioxide Anion Gap BUN Creatinine Est GFR (CKD-EPI)AfAm Est GFR (CKD-EPI)NonAf Random Glucose Calcium Phosphorus Magnesium Total Bilirubin AST ALT Alkaline Phosphatase Total Protein Albumin Lipase Urine Color Dk yellow Urine Appearance Clear Urine pH 6.5 Ur Specific [place] 1.021 Urine Protein 1+ H Urine Glucose (UA) Negative Urine Ketones 1+ H Urine Blood 1+ H Urine Nitrite Negative Urine Bilirubin 1+ H Urine Urobilinogen 2.0 H Ur Leukocyte Esterase 2+ H Urine WBC (Auto) 5 Urine RBC (Auto) 5-8 Urine Casts (Auto) 11 U Epithel Cells (Auto) 10.2 U Sm Round Cell (Auto) Negative Urine Bacteria (Auto) 80.3 Urine Yeast (Auto) Negative Urine HCG, Qual Negative Blood Type B POSITIVE Antibody Screen Negative 02/10/19 02/10/19 07:00 07:00 WBC 9.4 RBC 3.58 L Hgb 9.8 L Hct 29.4 L D MCV 82.2 MCH 27.2 MCHC 33.1 RDW 13.9 Plt Count 341 MPV 7.3 L Absolute Neuts (auto) 7.3 Neutrophils % 77.6 Lymphocytes % 19.7 Monocytes % 2.2 L Eosinophils % 0.2 Basophils % 0.3 Nucleated RBC % 0 Sodium 138 Potassium 3.2 L Chloride 107 Carbon Dioxide 22 Anion Gap 8 BUN 4.6 L Creatinine 0.6 Est GFR (CKD-EPI)AfAm 145.80 Est GFR (CKD-EPI)NonAf 125.80 Random Glucose 107 H Calcium 7.3 L Phosphorus 1.7 L Magnesium 2.3 Total Bilirubin 0.5 AST 30 ALT 24 Alkaline Phosphatase 98 Total Protein 6.0 L Albumin 2.5 L Lipase Urine Color Urine Appearance Urine pH Ur Specific [place] Urine Protein Urine Glucose (UA) Urine Ketones Urine Blood Urine Nitrite Urine Bilirubin Urine Urobilinogen Ur Leukocyte Esterase Urine WBC (Auto) Urine RBC (Auto) Urine Casts (Auto) U Epithel Cells (Auto) U Sm Round Cell (Auto) Urine Bacteria (Auto) Urine Yeast (Auto) Urine HCG, Qual Blood Type Antibody Screen Microbiology 02/10/19 01:06 Stool Clostridioides difficile Antigen - Final 02/10/19 01:06 Stool Clostridioides difficile Toxin Assay - Final 02/10/19 09:59 Urine For Antigen Detection Legionella Antigen - Final 02/10/19 09:59 Urine For Antigen Detection Streptococcus pneumoniae Antigen (M - Final 02/09/19 21:20 Blood - Peripheral Venous Blood Culture - Preliminary Pending Organism CT A/p results and images reviewed ASSESSMENT AND PLAN: 28 yof with no significant PMHx admitted with fevers, vomiting, diarrhea for 1 week. -Sepsis -Vomitting/diarrhea, ?Listeria ?clostridium ?bacillus -Gram positive bacilli bacteremia 1/2 -Dehydration -Hypokalemia -Hypophosphatemia Plan: ID/Gi input noted blood/stool cultures. Stool WBC/Ova and Parasites Stool C difficile neg. Emperic ceftriaxone/flagyl/ampicillin. IVF replete K/phos DVTPPX lovenox Dispo pending clinical improvement. Discussed with patient and nursing.
--- NOTE | 2019-02-10 16:51 | PN ---
Physical Exam: SUBJECTIVE: Patient seen and examined at bedside. Pt is feeling better now than she was. OBJECTIVE: Vital Signs Period Temp Pulse Resp BP Sys/Pena Pulse Ox Last 24 Hr 97.7 F-103.1 F 103-136 18-20 113-125/64-80 97-100 Gen: AAOx3, NAD HEENT: NCAT, EOMI Neck: supple, no jvd Cardio: rrr, normal s1s2, no mrg Pulm: cta b/l Abd: soft, nontender, nondistended Ext: no edema Laboratory Results - last 24 hr 02/09/19 02/09/19 02/09/19 10:00 16:57 16:57 WBC 12.7 H RBC 4.33 Hgb 11.7 Hct 36.2 MCV 83.5 MCH 26.9 MCHC 32.3 RDW 14.1 Plt Count 418 MPV 7.5 Absolute Neuts (auto) 9.6 H Neutrophils % 75.2 Lymphocytes % 21.5 Monocytes % 2.1 L Eosinophils % 0.4 Basophils % 0.8 Nucleated RBC % 0 Sodium 136 Potassium 3.7 Chloride 101 Carbon Dioxide 25 Anion Gap 11 BUN 7.5 Creatinine 0.6 Est GFR (CKD-EPI)AfAm 145.80 Est GFR (CKD-EPI)NonAf 125.80 Random Glucose 84 Calcium 9.0 Phosphorus Magnesium Total Bilirubin 0.7 AST 27 ALT 26 Alkaline Phosphatase 118 H Total Protein 8.0 Albumin 3.4 Lipase 77 Urine Color Urine Appearance Urine pH Ur Specific Starbuck Urine Protein Urine Glucose (UA) Urine Ketones Urine Blood Urine Nitrite Urine Bilirubin Urine Urobilinogen Ur Leukocyte Esterase Urine WBC (Auto) Urine RBC (Auto) Urine Casts (Auto) U Epithel Cells (Auto) U Sm Round Cell (Auto) Urine Bacteria (Auto) Urine Yeast (Auto) Urine HCG, Qual Blood Type B POSITIVE Antibody Screen 02/09/19 02/09/19 02/09/19 16:57 16:57 19:40 WBC RBC Hgb Hct MCV MCH MCHC RDW Plt Count MPV Absolute Neuts (auto) Neutrophils % Lymphocytes % Monocytes % Eosinophils % Basophils % Nucleated RBC % Sodium Potassium Chloride Carbon Dioxide Anion Gap BUN Creatinine Est GFR (CKD-EPI)AfAm Est GFR (CKD-EPI)NonAf Random Glucose Calcium Phosphorus Magnesium Total Bilirubin AST ALT Alkaline Phosphatase Total Protein Albumin Lipase Urine Color Dk yellow Urine Appearance Clear Urine pH 6.5 Ur Specific Starbuck 1.021 Urine Protein 1+ H Urine Glucose (UA) Negative Urine Ketones 1+ H Urine Blood 1+ H Urine Nitrite Negative Urine Bilirubin 1+ H Urine Urobilinogen 2.0 H Ur Leukocyte Esterase 2+ H Urine WBC (Auto) 5 Urine RBC (Auto) 5-8 Urine Casts (Auto) 11 U Epithel Cells (Auto) 10.2 U Sm Round Cell (Auto) Negative Urine Bacteria (Auto) 80.3 Urine Yeast (Auto) Negative Urine HCG, Qual Negative Blood Type B POSITIVE Antibody Screen Negative 02/10/19 02/10/19 07:00 07:00 WBC 9.4 RBC 3.58 L Hgb 9.8 L Hct 29.4 L D MCV 82.2 MCH 27.2 MCHC 33.1 RDW 13.9 Plt Count 341 MPV 7.3 L Absolute Neuts (auto) 7.3 Neutrophils % 77.6 Lymphocytes % 19.7 Monocytes % 2.2 L Eosinophils % 0.2 Basophils % 0.3 Nucleated RBC % 0 Sodium 138 Potassium 3.2 L Chloride 107 Carbon Dioxide 22 Anion Gap 8 BUN 4.6 L Creatinine 0.6 Est GFR (CKD-EPI)AfAm 145.80 Est GFR (CKD-EPI)NonAf 125.80 Random Glucose 107 H Calcium 7.3 L Phosphorus 1.7 L Magnesium 2.3 Total Bilirubin 0.5 AST 30 ALT 24 Alkaline Phosphatase 98 Total Protein 6.0 L Albumin 2.5 L Lipase Urine Color Urine Appearance Urine pH Ur Specific Starbuck Urine Protein Urine Glucose (UA) Urine Ketones Urine Blood Urine Nitrite Urine Bilirubin Urine Urobilinogen Ur Leukocyte Esterase Urine WBC (Auto) Urine RBC (Auto) Urine Casts (Auto) U Epithel Cells (Auto) U Sm Round Cell (Auto) Urine Bacteria (Auto) Urine Yeast (Auto) Urine HCG, Qual Blood Type Antibody Screen Active Medications Generic Name Dose Route Start Last Admin Trade Name Freq PRN Reason Stop Dose Admin Acetaminophen 650 mg 02/10/19 06:23 02/10/19 07:55 Tylenol - PO 650 mg Q6H PRN Administration PAIN OR FEVER Enoxaparin Sodium 40 mg 02/10/19 10:00 02/10/19 10:39 Lovenox - SQ 40 mg DAILY ADAM Administration Ceftriaxone Sodium 1,000 mg/ 50 mls @ 100 mls/hr 02/10/19 10:00 02/10/19 10: 39 Dextrose IVPB 100 mls/hr DAILY ADAM Administration Potassium Chloride/Sodium Chloride 20 meq in 1,000 mls @ 125 mls/hr 02/10/19 09:00 02/10/19 10:39 Ns+20 Meq Kcl - IV 125 mls/hr ASDIR ADAM Administration Metronidazole 500 mg in 100 mls @ 100 mls/hr 02/10/19 18:00 Flagyl 500mg Premixed Ivpb - IVPB Q8H-IV ADAM Ampicillin Sodium 2 gm/ Sodium 100 mls @ 200 mls/hr 02/10/19 10:45 02/10/19 13:00 Chloride IVPB 200 mls/hr Q6H-IV ADAM Administration Protocol Potassium Phos/Sodium Phos 1 packet 02/10/19 14:00 Phos-Nak Packet - PO 02/11/19 06:01 TID ADAM ASSESSMENT/PLAN: Pt is a 28 y/o F with abdominal pain, profuse watery diarrhea, high fevers, one episode of vomiting for the past 6 days. #Diarrhea -pt describes exposure to C.diff -c.diff studies, stool for ova and parasites, stool culture, norovirus, rotavirus, parasites -getting coverage with ampicillin, rocephin, metronidazole, -ID on board -GI on board -pt refused HIV test Visit type - Emergency Visit Emergency Visit: No - New Patient This patient is new to me today: No - Critical Care Critical Care patient: No ATTENDING PHYSICIAN STATEMENT I saw and evaluated the patient. I reviewed the resident's note and discussed the case with the resident. I agree with the resident's findings and plan as documented. SUBJECTIVE: OBJECTIVE: ASSESSMENT AND PLAN:
--- NOTE | 2019-02-10 17:17 | CONS ---
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 She was admitted with vomiting, diarrhea, and fevers which she has had for over 1 week now. Her symptoms began last Wednesday. She attributed them to her menses, which she frequently gets diarrhea and does not feel like eating, but the symptoms continued after her menses ended. She was not using tampons. She has been taking DayQuil and no antibiotic. She worked until Wednesday with these symptoms. She reports foul-smelling, nonbloody, water, large-volume diarrhea. She has had fever to 103 and 104 at home. She notes left lower quadrant discomfort. She has no history of STD. She is sexually active. No vaginal discharge. There is no history of any travel or camping. No unpasteurized foods. She likes salads and cold cuts. She has had no sick contacts besides work. She was involved in a code of a residential patient who had C. difficile, but she was wearing gloves at that time. She has not taken any recent antibiotics. She has never been hospitalized. Her admission white count was 12,000, and blood culture 1 of 2 bottles is positive for gram-positive bacilli. She had a CAT scan of her abdomen and pelvis with IV contrast that did not show any significant colitis. There was fluid in the colon and small bowel suggestive of diarrhea. She has never had any surgery, and her past medical history is unremarkable. She lives with her family. There is no history of cigarette, alcohol, or substance use. FAMILY HISTORY: Both of her parents have diabetes. ALLERGIES: She has no known drug allergies. MEDICATIONS: She takes no medications. REVIEW OF SYSTEMS: Notable for the fever. She gets headache when she has fever but no photophobia or neck stiffness. She has no cough. She did have dysuria about 5 days ago that has resolved. PHYSICAL EXAMINATION: General: She is well appearing. Vital Signs: Temperature is 98. Her T-max overnight was 103.1. Pulse of 111, blood pressure 113/75, respiratory rate of 18. She is saturating 99% on room air. HEENT: She is normocephalic. Her eyes are anicteric. Neck: Supple. No meningeal signs. Lungs: Clear to auscultation. Heart: Regular rate and rhythm. Abdomen: Soft. She has mild left lower quadrant discomfort to palpation. She has no right upper quadrant or right lower quadrant pain. Extremities: She has no edema. Skin: She has no rash. LABORATORY: Her labs are notable white count on admission was 12.7. Repeat white count is 9.4. Hemoglobin is 9.8. Platelets are 341. Her chemistries are notable for a BUN and creatinine that were 7.5 and 0.6 on admission, with a bicarbonate of 25. Today her LFTs are normal, and her urinalysis has 1+ ketones, 1+ blood, 2+ leukocyte esterase, with 5 white cells. She has been started on ceftriaxone and Flagyl. CAT scan findings as previously stated. Chest x-ray is notable for increased interstitial markings. SUMMARY: This is a 28-year-old woman admitted with acute gastroenteritis, gram-positive bacteremia, concerns for listeria. Would continue IV fluids. Would follow up cultures, repeat blood cultures, stool cultures. Stool white cells are pending. Stool C. difficile is pending, though I doubt this. Would continue Rocephin and Flagyl for bacterial gastroenteritis. Would add ampicillin pending blood culture results. Should offer HIV testing as well. I have not had a chance to speak to the patient about this. Case was discussed with the resident on service. DAVIDA RUBIN M.D. [id number] MTDD
[2019-02-10] MEDS ORDERED: SODIUM PHOSPHATE - 0 MM in DEXTROSE 5%-WATER - 250 ML IVPB ONE (18:25)
[2019-02-10] MEDS ORDERED: POTASSIUM PHOSPHATE 15 MM in DEXTROSE 5%-WATER - 250 ML IVPB ONE (18:31)
[2019-02-11] MEDS: AMPICILLIN - 2 GM in SODIUM CHLORIDE 100 ML IVPB SCH ×2 (02:03→19:52)
[2019-02-11] MEDS ORDERED: ACETAMINOPHEN 1000 MG/100 ML VIAL (NON FORMULARY) IVPB ONE (05:27)
[2019-02-11] MEDS ORDERED: ONDANSETRON 4 MG/2 ML VIAL IVPB ONE (06:55)
[2019-02-11] MEDS ORDERED: DEXTROSE 5%-WATER - 50 ML IVPB ONE (09:26)
[2019-02-11] MEDS ORDERED: PT OWN MED DRAWER 7, Y5N ONE (09:26)
[2019-02-11] MEDS ORDERED: cefTRIAXone SODIUM 1 GM VIAL ONE (09:26)
[2019-02-11] MEDS: ENOXAPARIN NA (PORCINE) 40 MG/0.4 ML DISP.SYRIN SQ SCH (09:36)
[2019-02-11] MEDS: CEFTRIAXONE 1 GM in DEXTROSE 5%-WATER - 50 ML IVPB SCH (10:49)
--- NOTE | 2019-02-11 11:20 | PN ---
Progress Note, Physician History of Present Illness: STILL WITH DIARRHEA NON BLOODY NO C/O ABDOMINAL PAIN TEMPS DOWN BC BACILLUS SP C DIFF (-) STOOL C/S PENDING - Current Medication List Current Medications: Active Medications Acetaminophen (Tylenol -) 650 mg PO Q6H PRN PRN Reason: PAIN OR FEVER Last Admin: 02/10/19 18:24 Dose: 650 mg Enoxaparin Sodium (Lovenox -) 40 mg SQ DAILY ADAM Last Admin: 02/11/19 09:36 Dose: Not Given Potassium Chloride/Sodium Chloride (Ns+20 Meq Kcl -) 20 meq in 1,000 mls @ 125 mls/hr IV ASDIR ADAM Last Admin: 02/10/19 10:39 Dose: 125 mls/hr Metronidazole (Flagyl 500mg Premixed Ivpb -) 500 mg in 100 mls @ 100 mls/hr IVPB Q8H-IV ADAM Last Admin: 02/11/19 09:32 Dose: 100 mls/hr Ampicillin Sodium 2 gm/ Sodium (Chloride) 100 mls @ 200 mls/hr IVPB Q6H-IV ADAM ; Protocol Last Admin: 02/11/19 02:03 Dose: 200 mls/hr Ceftriaxone Sodium 1 gm/ (Dextrose) 50 mls @ 100 mls/hr IVPB DAILY ADAM Last Admin: 02/11/19 10:49 Dose: 100 mls/hr - Objective Vital Signs: Vital Signs Temperature 98.9 F 02/11/19 06:00 Pulse Rate 97 H 02/11/19 06:00 Respiratory Rate 20 02/11/19 06:00 Blood Pressure 118/64 02/11/19 06:00 O2 Sat by Pulse Oximetry (%) 95 02/11/19 00:04 Constitutional: Yes: No Distress Eyes: Yes: Conjunctiva Clear Cardiovascular: Yes: Regular Rate and Rhythm, S1, S2 Respiratory: Yes: CTA Bilaterally Gastrointestinal: Yes: Normal Bowel Sounds, Soft. No: Tenderness Edema: No Labs: CBC, BMP 02/10/19 07:00 02/10/19 07:00 Assessment/Plan ACUTE GASTROENTERITIS +BC = CONTAMINANT FEVER/ LEUKOCYTOSIS IMPROVED AZOTEMIA IMPROVED AWAIT STOOL C/S CONTINUE CEFTRIAXONE/ FLAGYL D/C AMPICILLIN
[2019-02-11 12:51] LABS: BASO % 0.2 % (0-2.0); EOS % 0.5 % (0-4.5); HEMATOCRIT 28.9 % (32.4-45.2); HEMOGLOBIN 9.4 GM/dL (10.7-15.3); LYMPH % 21.2 % (8-40); MCH 27.2 pg (25.7-33.7); MCHC 32.6 g/dl (32.0-36.0); MEAN CELL VOLUME 83.4 fl (80-96); MEAN PLT VOLUME 7.5 fl (7.5-11.1); MONO % 2.5 % (3.8-10.2); NEUT % 75.6 % (42.8-82.8); PLATELET COUNT 338 K/MM3 (134-434); RBC 3.46 M/mm3 (3.60-5.2); RDW 13.6 % (11.6-15.6); WHITE BLOOD COUNT 10.3 K/mm3 (4.0-10.0)
[2019-02-11 13:20] LABS: ALBUMIN 2.6 g/dl (3.4-5.0); BILIRUBIN,TOTAL 0.3 mg/dL (0.2-1); BLOOD UREA NITROGEN 3.3 mg/dL (7-18); CALCIUM 8.5 mg/dL (8.5-10.1); CREATININE 0.5 mg/dL (0.55-1.3); MAGNESIUM 2.6 mg/dL (1.8-2.4); PHOSPHOROUS 3.2 mg/dL (2.5-4.9); POTASSIUM 3.4 mmol/L (3.5-5.1); TOT PROT 6.4 g/dl (6.4-8.2)
--- NOTE | 2019-02-11 13:28 | PN ---
Physical Exam: SUBJECTIVE: Patient seen and examined, 1 episode of soft stool. No further vomiting, nausea improved, overall feels better. OBJECTIVE: Vital Signs Period Temp Pulse Resp BP Sys/Pena Pulse Ox Last 24 Hr 97.7 F-100.8 F 97-117 16-20 113-123/62-80 95-99 Intake & Output 02/08/19 02/09/19 02/10/19 02/11/19 23:59 23:59 23:59 23:59 Intake Total 2375 500 Output Total 50 Balance 2325 500 Weight 154 lb 159 lb 3.2 oz General: sitting in bed in no acute distress Neck: soft, supple HEENT: PERRL, EOMI, moist mucous membrane CVS:S1S2 regular Chest: CTAB, no rales or wheezing Abdomen:soft, obese,NT, ND, no voluntary or involuntary guarding or rigidity, pos bowel sounds Extremities: no edema Psych: pleasant, co-operative Laboratory Results - last 24 hr 02/11/19 02/11/19 11:37 11:37 WBC 10.3 H RBC 3.46 L Hgb 9.4 L Hct 28.9 L MCV 83.4 MCH 27.2 MCHC 32.6 RDW 13.6 Plt Count 338 MPV 7.5 Absolute Neuts (auto) 7.8 Neutrophils % 75.6 Lymphocytes % 21.2 Monocytes % 2.5 L Eosinophils % 0.5 D Basophils % 0.2 Nucleated RBC % 0 Sodium 141 Potassium 3.4 L Chloride 108 H Carbon Dioxide 27 Anion Gap 6 L BUN 3.3 L Creatinine 0.5 L Est GFR (CKD-EPI)AfAm 154.81 Est GFR (CKD-EPI)NonAf 133.57 Random Glucose 102 Calcium 8.5 Phosphorus 3.2 Magnesium 2.6 H Total Bilirubin 0.3 AST 18 ALT 24 Alkaline Phosphatase 99 Total Protein 6.4 Albumin 2.6 L Active Medications Generic Name Dose Route Start Last Admin Trade Name Freq PRN Reason Stop Dose Admin Acetaminophen 650 mg 02/10/19 06:23 02/10/19 18:24 Tylenol - PO 650 mg Q6H PRN Administration PAIN OR FEVER Enoxaparin Sodium 40 mg 02/10/19 10:00 02/11/19 09:36 Lovenox - SQ Not Given DAILY ADAM Potassium Chloride/Sodium Chloride 20 meq in 1,000 mls @ 125 mls/hr 02/10/19 09:00 02/10/19 10:39 Ns+20 Meq Kcl - IV 125 mls/hr ASDIR ADAM Administration Metronidazole 500 mg in 100 mls @ 100 mls/hr 02/10/19 18:00 02/11/19 09:32 Flagyl 500mg Premixed Ivpb - IVPB 100 mls/hr Q8H-IV ADAM Administration Ceftriaxone Sodium 1 gm/ 50 mls @ 100 mls/hr 02/11/19 08:30 02/11/19 10:49 Dextrose IVPB 100 mls/hr DAILY ADAM Administration Potassium Chloride 40 meq 02/11/19 13:25 K-Dur - PO 02/11/19 13:26 ONCE ONE Microbiology 02/10/19 01:06 Stool Salmonella/Shigella Culture - Preliminary NO ENTERIC PATHOGENS, 24 HOURS, ON PRIMARY PLATES 02/10/19 01:06 Stool Yersinia Culture - Preliminary NO ENTERIC PATHOGENS, 24 HOURS, ON PRIMARY PLATES 02/10/19 01:06 Stool Vibrio Culture - Preliminary NO ENTERIC PATHOGENS, 24 HOURS, ON PRIMARY PLATES 02/10/19 01:06 Stool Escherichia coli 0157 Culture - Preliminary NO ENTERIC PATHOGENS, 24 HOURS, ON PRIMARY PLATES 02/09/19 16:57 Urine - Urine Clean Catch Urine Culture - Final NO GROWTH OBTAINED 02/09/19 10:00 Blood - Peripheral Venous Blood Culture - Preliminary NO GROWTH OBTAINED AFTER 24 HOURS, INCUBATION TO CONTINUE FOR 4 DAYS. 02/09/19 21:20 Blood - Peripheral Venous Blood Culture - Final Bacillus Species, Not Antracis 02/10/19 01:06 Stool Gram Stain - Final 02/10/19 01:06 Stool Clostridioides difficile Antigen - Final 02/10/19 01:06 Stool Clostridioides difficile Toxin Assay - Final 02/10/19 09:59 Urine For Antigen Detection Legionella Antigen - Final 02/10/19 09:59 Urine For Antigen Detection Streptococcus pneumoniae Antigen (M - Final ASSESSMENT/PLAN: 28 yof with no significant PMHx admitted with fevers, vomiting, diarrhea for 1 week. -Sepsis -Vomitting/diarrhea, ?Listeria ?clostridium ?bacillus -Gram positive bacilli bacteremia likely contaminant -Dehydration -Hypokalemia -Hypophosphatemia Plan: ID/Gi input noted Clinically improved. ceftriaxone/flagyl. Off ampicillin. Stool C difficile neg. Follow up stool studies, repeat blood cx. IVF replete K DVTPPX lovenox Dispo in 24-48 hours if continues to improve. Discussed with patient and nursing. Visit type - Emergency Visit Emergency Visit: Yes ED Registration Date: 02/09/19 Care time: The patient presented to the Emergency Department on the above date and was hospitalized for further evaluation of their emergent condition. - New Patient This patient is new to me today: No - Critical Care Critical Care patient: No - Discharge Referral Referred to [facility] Med P.C.: No
[2019-02-11] MEDS ORDERED: POTASSIUM CHLORIDE TABS 20 MEQ TABLET.ER (FP) PO ONE (13:30)
[2019-02-11 17:39] VITALS: BMI 29.9
[2019-02-11] MEDS: SODIUM CHLORIDE 0.9%/KCL 20 MEQ/1,000 ML INFUS.BAG IV SCH ×2 (19:43→21:23)
--- NOTE | 2019-02-11 20:18 | PN.GI ---
GI Progress Note Subjective: States that she had an episode of vomiting 4 am this morning. Describes persistent diarrhea, somewhat more formed no fevers today - Objective Vital Signs: Vital Signs Temperature 98.7 F 02/11/19 18:11 Pulse Rate 104 H 02/11/19 18:11 Respiratory Rate 20 02/11/19 18:11 Blood Pressure 130/86 02/11/19 18:11 O2 Sat by Pulse Oximetry (%) 95 02/11/19 00:04 Constitutional: Calm Eyes: No: Sclera Icterus Cardiovascular: Yes: Regular Rate and Rhythm Respiratory: Yes: CTA Bilaterally Gastrointestinal Inspection: No: Distention ...Auscultate: Yes: Normoactive Bowel Sounds ...Palpate: Yes: Soft. No: Hepatomegaly, Splenomegaly, Tenderness ...Percussion: No: Tympanitic Edema: No (No LE edema) Neurological: Yes: Alert Labs: CBC, BMP 02/11/19 11:37 02/11/19 11:37 Microbiology 02/10/19 09:59 Urine For Antigen Detection Legionella Antigen - Neg 02/10/19 09:59 Urine For Antigen Detection Streptococcus pneumoniae Antigen (M - Final): Neg 02/10/19 01:06 Stool Clostridioides difficile Antigen - Neg 02/10/19 01:06 Stool Clostridioides difficile Toxin Assay - Neg 02/09/19 21:20 Blood - Peripheral Venous Blood Culture - Final Bacillus Species, Not Antracis 02/10/19 01:06 Stool Salmonella/Shigella Culture - Preliminary 02/10/19 01:06 Stool Escherichia coli 0157 Culture - Preliminary NO ENTERIC PATHOGENS, 24 HOURS, ON PRIMARY PLATES NO ENTERIC PATHOGENS, 24 HOURS, ON PRIMARY PLATES NO ENTERIC PATHOGENS, 24 HOURS, ON PRIMARY PLATES NO ENTERIC PATHOGENS, 24 HOURS, ON PRIMARY PLATES Problem List - Problems (1) Vomiting and diarrhea Assessment/Plan: Some clinical improvement, infectious work-up in progress Continue to monitor Overall tolerating PO Code(s): R11.10 - VOMITING, UNSPECIFIED; R19.7 - DIARRHEA, UNSPECIFIED
[2019-02-11] MEDS: ACETAMINOPHEN 325 MG TABLET (FP) PO PRN (23:49)
[2019-02-12] MEDS: SODIUM CHLORIDE 0.9%/KCL 20 MEQ/1,000 ML INFUS.BAG IV SCH ×2 (06:33→18:09)
[2019-02-12 07:31] LABS: BASO % 0.2 % (0-2.0); EOS % 1.3 % (0-4.5); HEMATOCRIT 28.2 % (32.4-45.2); HEMOGLOBIN 9.2 GM/dL (10.7-15.3); LYMPH % 29.1 % (8-40); MCH 27.1 pg (25.7-33.7); MCHC 32.8 g/dl (32.0-36.0); MEAN CELL VOLUME 82.9 fl (80-96); MEAN PLT VOLUME 7.4 fl (7.5-11.1); MONO % 2.6 % (3.8-10.2); NEUT % 66.8 % (42.8-82.8); PLATELET COUNT 375 K/MM3 (134-434); RDW 13.8 % (11.6-15.6); WHITE BLOOD COUNT 10.1 K/mm3 (4.0-10.0)
[2019-02-12 08:28] LABS: ALBUMIN 2.4 g/dl (3.4-5.0); BILIRUBIN,TOTAL 0.4 mg/dL (0.2-1); BLOOD UREA NITROGEN 5.8 mg/dL (7-18); CALCIUM 8.2 mg/dL (8.5-10.1); CREATININE 0.6 mg/dL (0.55-1.3); MAGNESIUM 2.4 mg/dL (1.8-2.4); PHOSPHOROUS 2.7 mg/dL (2.5-4.9); POTASSIUM 4.3 mmol/L (3.5-5.1); TOT PROT 5.9 g/dl (6.4-8.2)
[2019-02-12] MEDS ORDERED: cefTRIAXone SODIUM 1 GM VIAL ONE (09:41)
[2019-02-12] MEDS ORDERED: DEXTROSE 5%-WATER - 50 ML IVPB ONE (09:41)
[2019-02-12] MEDS: ENOXAPARIN NA (PORCINE) 40 MG/0.4 ML DISP.SYRIN SQ SCH (09:44)
[2019-02-12] MEDS: CEFTRIAXONE 1 GM in DEXTROSE 5%-WATER - 50 ML IVPB SCH (10:57)
--- NOTE | 2019-02-12 11:17 | PN ---
Progress Note, Physician History of Present Illness: SUPINE IN BED FEBRILE OVERNIGHT STILL WITH DIARRHEA NON BLOODY NO C/O ABDOMINAL PAIN BC BACILLUS SP C DIFF (-) STOOL C/S NEGATIVE - Current Medication List Current Medications: Active Medications Acetaminophen (Tylenol -) 650 mg PO Q6H PRN PRN Reason: PAIN OR FEVER Last Admin: 02/11/19 23:49 Dose: 650 mg Enoxaparin Sodium (Lovenox -) 40 mg SQ DAILY [facility] Last Admin: 02/12/19 09:44 Dose: Not Given Potassium Chloride/Sodium Chloride (Ns+20 Meq Kcl -) 20 meq in 1,000 mls @ 125 mls/hr IV ASDIR [facility] Last Admin: 02/12/19 06:33 Dose: 125 mls/hr Metronidazole (Flagyl 500mg Premixed Ivpb -) 500 mg in 100 mls @ 100 mls/hr IVPB Q8H-IV [facility] Last Admin: 02/12/19 09:44 Dose: 100 mls/hr Ceftriaxone Sodium 1 gm/ (Dextrose) 50 mls @ 100 mls/hr IVPB DAILY [facility] Last Admin: 02/12/19 10:57 Dose: 100 mls/hr - Objective Vital Signs: Vital Signs Temperature 98.6 F 02/12/19 08:05 Pulse Rate 92 H 02/12/19 08:05 Respiratory Rate 18 02/12/19 08:05 Blood Pressure 112/64 02/12/19 08:05 O2 Sat by Pulse Oximetry (%) 96 02/11/19 21:00 Constitutional: Yes: No Distress Cardiovascular: Yes: Regular Rate and Rhythm, S1, S2 Respiratory: Yes: CTA Bilaterally Gastrointestinal: Yes: Normal Bowel Sounds, Soft. No: Tenderness Labs: CBC, BMP 02/12/19 05:47 02/12/19 05:25 Assessment/Plan ACUTE GASTROENTERITIS +BC = CONTAMINANT FEVER/ LEUKOCYTOSIS AZOTEMIA IMPROVED CONTINUE CEFTRIAXONE/ FLAGYL
[2019-02-12] MEDS ORDERED: ONDANSETRON 4 MG/2 ML VIAL IVPUSH PRN (11:45)
--- NOTE | 2019-02-12 15:48 | PN ---
Physical Exam: SUBJECTIVE: Patient seen and examined, still with ongoing vomiting and diarrhea. Reports might have a yeast infection from antibiotics, vaginal discharge. OBJECTIVE: Vital Signs Period Temp Pulse Resp BP Sys/Pena Pulse Ox Last 24 Hr 98.5 F-101.3 F 76-104 18-20 112-139/64-90 96 Intake & Output 02/09/19 02/10/19 02/11/19 02/12/19 23:59 23:59 23:59 23:59 Intake Total 2375 1964 1500 Output Total 50 Balance 2325 1964 1500 Weight 154 lb 159 lb 3.2 oz 158 lb 11.725 oz General: sitting in bed in no acute distress Neck: soft, supple HEENT: PERRL, EOMI, moist mucous membrane CVS:S1S2 regular Chest: CTAB, no rales or wheezing Abdomen:soft, obese,NT, ND, no voluntary or involuntary guarding or rigidity, pos bowel sounds Extremities: no edema Psych: pleasant, co-operative Laboratory Results - last 24 hr 02/12/19 02/12/19 05:25 05:47 WBC 10.1 H RBC 3.40 L Hgb 9.2 L Hct 28.2 L MCV 82.9 MCH 27.1 MCHC 32.8 RDW 13.8 Plt Count 375 MPV 7.4 L Absolute Neuts (auto) 6.7 Neutrophils % 66.8 Lymphocytes % 29.1 D Monocytes % 2.6 L Eosinophils % 1.3 D Basophils % 0.2 Nucleated RBC % 0 Sodium 140 Potassium 4.3 Chloride 108 H Carbon Dioxide 22 Anion Gap 10 BUN 5.8 L Creatinine 0.6 Est GFR (CKD-EPI)AfAm 145.80 Est GFR (CKD-EPI)NonAf 125.80 Random Glucose 83 Calcium 8.2 L Phosphorus 2.7 Magnesium 2.4 Total Bilirubin 0.4 AST 15 ALT 20 Alkaline Phosphatase 84 Total Protein 5.9 L Albumin 2.4 L Active Medications Generic Name Dose Route Start Last Admin Trade Name Freq PRN Reason Stop Dose Admin Acetaminophen 650 mg 02/10/19 06:23 02/11/19 23:49 Tylenol - PO 650 mg Q6H PRN Administration PAIN OR FEVER Enoxaparin Sodium 40 mg 02/10/19 10:00 02/12/19 09:44 Lovenox - SQ Not Given DAILY ADAM Potassium Chloride/Sodium Chloride 20 meq in 1,000 mls @ 125 mls/hr 02/10/19 09:00 02/12/19 06:33 Ns+20 Meq Kcl - IV 125 mls/hr ASDIR ADAM Administration Metronidazole 500 mg in 100 mls @ 100 mls/hr 02/10/19 18:00 02/12/19 09:44 Flagyl 500mg Premixed Ivpb - IVPB 100 mls/hr Q8H-IV ADAM Administration Ceftriaxone Sodium 1 gm/ 50 mls @ 100 mls/hr 02/11/19 08:30 02/12/19 10:57 Dextrose IVPB 100 mls/hr DAILY ADAM Administration Ondansetron HCl 4 mg 02/12/19 11:45 02/12/19 12:29 Zofran Injection IVPUSH 4 mg Q6H PRN Administration NAUSEA AND/OR VOMITING Microbiology 02/10/19 13:45 Blood - Peripheral Venous Blood Culture - Preliminary NO GROWTH OBTAINED AFTER 48 HOURS, INCUBATION TO CONTINUE FOR 3 DAYS. 02/10/19 13:40 Blood - Peripheral Venous Blood Culture - Preliminary NO GROWTH OBTAINED AFTER 48 HOURS, INCUBATION TO CONTINUE FOR 3 DAYS. 02/09/19 10:00 Blood - Peripheral Venous Blood Culture - Preliminary NO GROWTH OBTAINED AFTER 48 HOURS, INCUBATION TO CONTINUE FOR 3 DAYS. 02/10/19 01:06 Stool Salmonella/Shigella Culture - Final NO GROWTH OF SALMONELLA OR SHIGELLA SPECIES OBTAINED 02/10/19 01:06 Stool Campylobacter Culture - Final NO GROWTH OF CAMPYLOBACTER SPECIES OBTAINED 02/10/19 01:06 Stool Yersinia Culture - Final NO GROWTH OF YERSINIA SPECIES OBTAINED 02/10/19 01:06 Stool Vibrio Culture - Final NO GROWTH OF VIBRIO SPECIES OBTAINED 02/10/19 01:06 Stool Escherichia coli 0157 Culture - Final NO GROWTH OF E COLI 0157 OBTAINED 02/09/19 16:57 Urine - Urine Clean Catch Urine Culture - Final NO GROWTH OBTAINED 02/09/19 21:20 Blood - Peripheral Venous Blood Culture - Final Bacillus Species, Not Antracis 02/10/19 01:06 Stool Gram Stain - Final 02/10/19 01:06 Stool Clostridioides difficile Antigen - Final 02/10/19 01:06 Stool Clostridioides difficile Toxin Assay - Final 02/10/19 09:59 Urine For Antigen Detection Legionella Antigen - Final 02/10/19 09:59 Urine For Antigen Detection Streptococcus pneumoniae Antigen (M - Final ASSESSMENT/PLAN: 28 yof with no significant PMHx admitted with fevers, vomiting, diarrhea for 1 week. -Sepsis -Vomiting/diarrhea, ?Listeria ?clostridium ?bacillus -Gram positive bacilli bacteremia likely contaminant -Dehydration -Hypokalemia -Hypophosphatemia Plan: Ongoing Fevers and symptoms. Ceftriaxone/flagyl. Follow up stools studies. Stool C difficile neg May need colonoscopy if fails to improve, defer to GI. ID input noted. DVTPPX lovenox Dispo dispo planning on hold given recurrent fevers and ongoing symptoms. Discussed with patient and nursing. Visit type - Emergency Visit Emergency Visit: Yes ED Registration Date: 02/09/19 Care time: The patient presented to the Emergency Department on the above date and was hospitalized for further evaluation of their emergent condition. - New Patient This patient is new to me today: No - Critical Care Critical Care patient: No - Discharge Referral Referred to [facility] Med P.C.: No
[2019-02-13] MEDS: SODIUM CHLORIDE 0.9%/KCL 20 MEQ/1,000 ML INFUS.BAG IV SCH ×2 (04:14→10:19)
[2019-02-13 07:41] LABS: BASO % 0.5 % (0-2.0); EOS % 2.7 % (0-4.5); HEMATOCRIT 30.3 % (32.4-45.2); HEMOGLOBIN 9.8 GM/dL (10.7-15.3); LYMPH % 26.5 % (8-40); MCHC 32.4 g/dl (32.0-36.0); MEAN CELL VOLUME 83.2 fl (80-96); MEAN PLT VOLUME 7.4 fl (7.5-11.1); MONO % 4.6 % (3.8-10.2); NEUT % 65.7 % (42.8-82.8); PLATELET COUNT 406 K/MM3 (134-434); RBC 3.64 M/mm3 (3.60-5.2); WHITE BLOOD COUNT 9.4 K/mm3 (4.0-10.0)
[2019-02-13 08:16] LABS: ALBUMIN 2.4 g/dl (3.4-5.0); BILIRUBIN,TOTAL 0.3 mg/dL (0.2-1); BLOOD UREA NITROGEN 5.2 mg/dL (7-18); CALCIUM 8.1 mg/dL (8.5-10.1); CREATININE 0.6 mg/dL (0.55-1.3); MAGNESIUM 2.5 mg/dL (1.8-2.4); PHOSPHOROUS 3.1 mg/dL (2.5-4.9); POTASSIUM 4.3 mmol/L (3.5-5.1); TOT PROT 5.8 g/dl (6.4-8.2)
[2019-02-13] MEDS ORDERED: cefTRIAXone SODIUM 1 GM VIAL ONE (09:38)
[2019-02-13] MEDS ORDERED: DEXTROSE 5%-WATER - 50 ML IVPB ONE (09:39)
[2019-02-13] MEDS: ENOXAPARIN NA (PORCINE) 40 MG/0.4 ML DISP.SYRIN SQ SCH (10:19)
--- NOTE | 2019-02-13 10:27 | PN ---
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
--- NOTE | 2019-02-13 10:41 | PN ---
Progress Note (short form) - Note Progress Note: overall feels much improved now able to eat -one episode vomiting yesterday- none since still with multiple stools but becoming formed no history of anemia no abdominal pain reports episode of fever and chills last nght- not recorded- no tylenol- resolved afebrile today vaginal itching Vital Signs Period Temp Pulse Resp BP Sys/Pena Pulse Ox Last 24 Hr 98.7 F-99.4 F 87-108 18-18 116-136/67-90 96 cor-rrr lungs clear abd soft,nt ex tno edema no rash CBC, BMP 02/13/19 06:10 02/13/19 06:00 Microbiology 02/09/19 10:00 Blood - Peripheral Venous Blood Culture - Preliminary NO GROWTH OBTAINED AFTER 72 HOURS, INCUBATION TO CONTINUE FOR 2 DAYS. 02/10/19 13:45 Blood - Peripheral Venous Blood Culture - Preliminary NO GROWTH OBTAINED AFTER 48 HOURS, INCUBATION TO CONTINUE FOR 3 DAYS. 02/10/19 13:40 Blood - Peripheral Venous Blood Culture - Preliminary NO GROWTH OBTAINED AFTER 48 HOURS, INCUBATION TO CONTINUE FOR 3 DAYS. 02/10/19 01:06 Stool Salmonella/Shigella Culture - Final NO GROWTH OF SALMONELLA OR SHIGELLA SPECIES OBTAINED 02/10/19 01:06 Stool Campylobacter Culture - Final NO GROWTH OF CAMPYLOBACTER SPECIES OBTAINED 02/10/19 01:06 Stool Yersinia Culture - Final NO GROWTH OF YERSINIA SPECIES OBTAINED 02/10/19 01:06 Stool Vibrio Culture - Final NO GROWTH OF VIBRIO SPECIES OBTAINED 02/10/19 01:06 Stool Escherichia coli 0157 Culture - Final NO GROWTH OF E COLI 0157 OBTAINED 02/09/19 16:57 Urine - Urine Clean Catch Urine Culture - Final NO GROWTH OBTAINED 02/09/19 21:20 Blood - Peripheral Venous Blood Culture - Final Bacillus Species, Not Antracis 02/10/19 01:06 Stool Gram Stain - Final 02/10/19 01:06 Stool Clostridioides difficile Antigen - Final 02/10/19 01:06 Stool Clostridioides difficile Toxin Assay - Final 02/10/19 09:59 Urine For Antigen Detection Legionella Antigen - Final 02/10/19 09:59 Urine For Antigen Detection Streptococcus pneumoniae Antigen (M - Final Current Medications Acetaminophen (Tylenol -) 650 mg PO Q6H PRN PRN Reason: PAIN OR FEVER Last Admin: 02/11/19 23:49 Dose: 650 mg Enoxaparin Sodium (Lovenox -) 40 mg SQ DAILY ADAM Last Admin: 02/13/19 10:19 Dose: Not Given Potassium Chloride/Sodium Chloride (Ns+20 Meq Kcl -) 20 meq in 1,000 mls @ 125 mls/hr IV ASDIR ADAM Last Admin: 02/13/19 10:19 Dose: 125 mls/hr Metronidazole (Flagyl 500mg Premixed Ivpb -) 500 mg in 100 mls @ 100 mls/hr IVPB Q8H-IV ADAM Last Admin: 02/13/19 02:27 Dose: 100 mls/hr Ceftriaxone Sodium 1 gm/ (Dextrose) 50 mls @ 100 mls/hr IVPB DAILY ADAM Last Admin: 02/12/19 10:57 Dose: 100 mls/hr Ondansetron HCl (Zofran Injection) 4 mg IVPUSH Q6H PRN PRN Reason: NAUSEA AND/OR VOMITING Last Admin: 02/12/19 12:29 Dose: 4 mg a/p gastroenteritis still with intermittent fevers stool cultures and stool wbc negative blood culture contaminant otherwise negative will d/c antiibotics (has completed 4 days) reculture off antiibotics norovirus/rotovirus stool ova and parasites esr/crp consents to HIV testing d/w GI no endoscopy yet add monistat d/w patient at bedside
--- NOTE | 2019-02-13 13:22 | PN ---
Teaching Attending Note Name of Resident: Clark Moreira ATTENDING PHYSICIAN STATEMENT I saw and evaluated the patient. I reviewed the resident's note and discussed the case with the resident. I agree with the resident's findings and plan as documented with exceptions below. SUBJECTIVE: Patient seen and examined. Reports fevers 102 overnight and still with watery non bloody stools. Nausea improved with zofran, no vomiting. OBJECTIVE: Vital Signs Period Temp Pulse Resp BP Sys/Pena Pulse Ox Last 24 Hr 98.7 F-99.4 F 87-108 18-18 116-136/67-90 96 Intake & Output 02/10/19 02/11/19 02/12/19 02/13/19 23:59 23:59 23:59 23:59 Intake Total 2375 1964 2693 1500 Output Total 50 Balance 2325 1964 2693 1500 Weight 159 lb 3.2 oz 158 lb 11.725 oz General: sitting in bed in no acute distress Neck: soft, supple HEENT: PERRL, EOMI, moist mucous membrane CVS:S1S2 regular Chest: CTAB, no rales or wheezing Abdomen:soft, obese,NT, ND, no voluntary or involuntary guarding or rigidity, pos bowel sounds Extremities: no edema Psych: pleasant, co-operative Home Medications Medication Instructions Recorded NK [No Known Home Medication] 11/08/16 ASSESSMENT AND PLAN: 28 yof with no significant PMHx admitted with fevers, vomiting, diarrhea for 1 week. -Sepsis -Vomiting/diarrhea, ?Listeria ?clostridium ?bacillus -Gram positive bacilli bacteremia likely contaminant -Dehydration -Hypokalemia -Hypophosphatemia Plan: patient rpeorts fevers upto 102 overnight, none charted. Also states 4 episodes of watery non bloody BM overnight, per nursing records, overnight small loose BM x 1. Discussed with patient and nursing to chart all BM Stool studies all neg. Discussed with ID, d/c abx. GI input noted, low residue diet. Replete K prn. DVTPPX lovenox Dispo dc in 24-48 hours if clinically improved, w/u neg. Discussed with patient and nursing, all questions answered.
[2019-02-13] MEDS: CEFTRIAXONE 1 GM in DEXTROSE 5%-WATER - 50 ML IVPB SCH (13:25)
--- NOTE | 2019-02-13 13:53 | PN ---
Progress Note (short form) - Note Progress Note: GI f/u Patient reports stomach much better since yesterday midday. Seen at lunch and pt was hungry and about to eat a sandwich. No abdominal pain. Still diarrhea but improving. Reportedly had temp 102 o/n but nothing recorded Vital Signs Temp 98.8 F 02/13/19 06:00 Pulse 108 H 02/13/19 06:00 Resp 18 02/13/19 06:00 BP 122/75 02/13/19 06:00 Pulse Ox 96 02/12/19 21:00 NAD, sitting up eating sandwich CBC, BMP 02/13/19 06:10 02/13/19 06:00 Imp: likely self limited gastroenteritis. Patient is improving with conservative care. - advance diet as tolerated - discussed low residue w patient - follow up stool studies - would dc abx - pt reports that ID was going to dc them
--- NOTE | 2019-02-13 14:37 | PN ---
Physical Exam: SUBJECTIVE: Patient seen and examined at bedside. Low grade temps overnight. Pt feels a bit better. OBJECTIVE: Vital Signs Period Temp Pulse Resp BP Sys/Pena Pulse Ox Last 24 Hr 98.7 F-99.4 F 87-108 18-18 116-136/67-90 96 Gen: AAOx3, NAD HEENT: NCAT, EOMI Neck: supple, no jvd Cardio: rrr, normal s1s2, no mrg Pulm: cta b/l Abd: soft, nontender, nondistended Ext: no edema Laboratory Results - last 24 hr 02/13/19 02/13/19 06:00 06:10 WBC 9.4 RBC 3.64 Hgb 9.8 L Hct 30.3 L MCV 83.2 MCH 27.0 MCHC 32.4 RDW 14.0 Plt Count 406 MPV 7.4 L Absolute Neuts (auto) 6.2 Neutrophils % 65.7 Lymphocytes % 26.5 Monocytes % 4.6 Eosinophils % 2.7 D Basophils % 0.5 Nucleated RBC % 0 Sodium 140 Potassium 4.3 Chloride 108 H Carbon Dioxide 25 Anion Gap 8 BUN 5.2 L Creatinine 0.6 Est GFR (CKD-EPI)AfAm 145.80 Est GFR (CKD-EPI)NonAf 125.80 Random Glucose 86 Calcium 8.1 L Phosphorus 3.1 Magnesium 2.5 H Total Bilirubin 0.3 AST 19 ALT 21 Alkaline Phosphatase 81 Total Protein 5.8 L Albumin 2.4 L Active Medications Generic Name Dose Route Start Last Admin Trade Name Freq PRN Reason Stop Dose Admin Acetaminophen 650 mg 02/10/19 06:23 02/11/19 23:49 Tylenol - PO 650 mg Q6H PRN Administration PAIN OR FEVER Enoxaparin Sodium 40 mg 02/10/19 10:00 02/13/19 10:19 Lovenox - SQ Not Given DAILY ADAM Potassium Chloride/Sodium Chloride 20 meq in 1,000 mls @ 125 mls/hr 02/10/19 09:00 02/13/19 10:19 Ns+20 Meq Kcl - IV 125 mls/hr ASDIR ADAM Administration Miconazole Nitrate 200 mg 02/13/19 22:00 Miconazole 3 PV 02/15/19 22:01 HS ADAM Ondansetron HCl 4 mg 02/12/19 11:45 09/15/19 12:29 Zofran Injection IVPUSH 4 mg Q6H PRN Administration NAUSEA AND/OR VOMITING ASSESSMENT/PLAN: Pt is a 28 y/o F with abdominal pain, profuse watery diarrhea, high fevers, one episode of vomiting for the past 6 days. #Diarrhea -pt describes exposure to C.diff -c.diff studies, stool for ova and parasites, stool culture, norovirus, rotavirus, parasites -was getting coverage with ampicillin, rocephin, metronidazole -Abx d/c'ed at this time -ID on board -GI on board -Pt may require colonoscopy w/ biopsy in the future if she does not resolve Visit type - Emergency Visit Emergency Visit: No - New Patient This patient is new to me today: No - Critical Care Critical Care patient: No ATTENDING PHYSICIAN STATEMENT I saw and evaluated the patient. I reviewed the resident's note and discussed the case with the resident. I agree with the resident's findings and plan as documented. SUBJECTIVE: OBJECTIVE: ASSESSMENT AND PLAN:
[2019-02-13] MEDS ORDERED: PT OWN MED DRAWER 7, Y5N ONE ×2 (21:02→21:38)
[2019-02-13] MEDS ORDERED: MICONAZOLE NITRATE 200 MG VAGINAL SUPPOSITORY PV SCH (22:00)
[2019-02-14 07:31] LABS: HEMATOCRIT 31.6 % (32.4-45.2); HEMOGLOBIN 10.3 GM/dL (10.7-15.3); MCHC 32.5 g/dl (32.0-36.0); MEAN CELL VOLUME 83.3 fl (80-96); MEAN PLT VOLUME 7.3 fl (7.5-11.1); PLATELET COUNT 477 K/MM3 (134-434)
[2019-02-14 08:33] LABS: BLOOD UREA NITROGEN 6.6 mg/dL (7-18); CALCIUM 9.1 mg/dL (8.5-10.1); CREATININE 0.5 mg/dL (0.55-1.3); POTASSIUM 4.4 mmol/L (3.5-5.1)
--- NOTE | 2019-02-14 11:51 | PN ---
Teaching Attending Note Name of Resident: Clark Moreira ATTENDING PHYSICIAN STATEMENT I saw and evaluated the patient. I reviewed the resident's note and discussed the case with the resident. I agree with the resident's findings and plan as documented with exceptions below. SUBJECTIVE: Patient seen and examined, no further fevers. Diarrhea improved, soft stool, tolerating diet. OBJECTIVE: Vital Signs Period Temp Pulse Resp BP Sys/Pena Pulse Ox Last 24 Hr 98.1 F-98.2 F 85-110 18-20 116-122/62-69 Intake & Output 02/11/19 02/12/19 02/13/19 02/14/19 23:59 23:59 23:59 23:59 Intake Total 1964 2693 4000 1175 Balance 1964 2693 4000 1175 Weight 158 lb 11.725 oz General: lying in bed in no acute distress Neck: soft, supple CVS:S1S2 regular Chest: CTAb, no rales or wheezing Abdomen:Soft, obese, NT throughout, pos bowel sounds Extremities: no edema Home Medications Medication Instructions Recorded Miconazole Nitrate [Miconazole 3] 200 mg PV HS #2 supp.vag 02/14/19 Active Medications Acetaminophen (Tylenol -) 650 mg PO Q6H PRN PRN Reason: PAIN OR FEVER Last Admin: 02/11/19 23:49 Dose: 650 mg Enoxaparin Sodium (Lovenox -) 40 mg SQ DAILY [facility] Last Admin: 02/13/19 10:19 Dose: Not Given Potassium Chloride/Sodium Chloride (Ns+20 Meq Kcl -) 20 meq in 1,000 mls @ 125 mls/hr IV ASDIR ADAM Last Admin: 02/13/19 10:19 Dose: 125 mls/hr Miconazole Nitrate (Miconazole 3) 200 mg PV HS [facility] Stop: 02/15/19 22:01 Last Admin: 02/13/19 21:30 Dose: 200 mg Ondansetron HCl (Zofran Injection) 4 mg IVPUSH Q6H PRN PRN Reason: NAUSEA AND/OR VOMITING Last Admin: 02/12/19 12:29 Dose: 4 mg Laboratory Results - last 24 hr 02/14/19 02/14/19 06:00 06:00 WBC 8.0 RBC 3.80 Hgb 10.3 L Hct 31.6 L MCV 83.3 MCH 27.0 MCHC 32.5 RDW 14.0 Plt Count 477 H MPV 7.3 L Sodium 138 Potassium 4.4 Chloride 106 Carbon Dioxide 27 Anion Gap 6 L BUN 6.6 L Creatinine 0.5 L Est GFR (CKD-EPI)AfAm 154.81 Est GFR (CKD-EPI)NonAf 133.57 Random Glucose 105 Calcium 9.1 C-Reactive Protein 6.7 H Microbiology 02/09/19 10:00 Blood - Peripheral Venous Blood Culture - Preliminary NO GROWTH OBTAINED AFTER 96 HOURS, INCUBATION TO CONTINUE FOR 1 DAYS. 02/11/19 18:29 Stool Gram Stain - Final 02/10/19 13:45 Blood - Peripheral Venous Blood Culture - Preliminary NO GROWTH OBTAINED AFTER 72 HOURS, INCUBATION TO CONTINUE FOR 2 DAYS. 02/10/19 13:40 Blood - Peripheral Venous Blood Culture - Preliminary NO GROWTH OBTAINED AFTER 72 HOURS, INCUBATION TO CONTINUE FOR 2 DAYS. 02/11/19 18:29 Stool Cryptosporidium Antigen - Final 02/11/19 18:29 Stool Giardia Antigen (RADHA) - Final 02/10/19 01:06 Stool Salmonella/Shigella Culture - Final NO GROWTH OF SALMONELLA OR SHIGELLA SPECIES OBTAINED 02/10/19 01:06 Stool Campylobacter Culture - Final NO GROWTH OF CAMPYLOBACTER SPECIES OBTAINED 02/10/19 01:06 Stool Yersinia Culture - Final NO GROWTH OF YERSINIA SPECIES OBTAINED 02/10/19 01:06 Stool Vibrio Culture - Final NO GROWTH OF VIBRIO SPECIES OBTAINED 02/10/19 01:06 Stool Escherichia coli 0157 Culture - Final NO GROWTH OF E COLI 0157 OBTAINED 02/09/19 16:57 Urine - Urine Clean Catch Urine Culture - Final NO GROWTH OBTAINED 02/09/19 21:20 Blood - Peripheral Venous Blood Culture - Final Bacillus Species, Not Antracis 02/10/19 01:06 Stool Gram Stain - Final 02/10/19 01:06 Stool Clostridioides difficile Antigen - Final 02/10/19 01:06 Stool Clostridioides difficile Toxin Assay - Final 02/10/19 09:59 Urine For Antigen Detection Legionella Antigen - Final 02/10/19 09:59 Urine For Antigen Detection Streptococcus pneumoniae Antigen (M - Final ASSESSMENT AND PLAN: 28 yof with no significant PMHx admitted with fevers, vomiting, diarrhea for 1 week. -Sepsis -Vomiting/diarrhea, ?Listeria ?clostridium ?bacillus -Gram positive bacilli bacteremia likely contaminant -Dehydration -Hypokalemia -Hypophosphatemia Plan: afebrile,symptoms improved, off abx. Stool studies neg so far. ID input noted. GI input noted, low residue diet, outpatient follow up. Miconazole vaginal supp for 2 more doses. Stool isospora/norvorius/AFb pending but unlikely to exchange architect. To have followed up outpt. Discussed with patient. Dc home today with outpatient PCP and GI follow up. Discussed with patient and nursing. All questions answered.
[2019-02-14] MEDS: SODIUM CHLORIDE 0.9%/KCL 20 MEQ/1,000 ML INFUS.BAG IV SCH (12:35)
[2019-02-14] MEDS: ENOXAPARIN NA (PORCINE) 40 MG/0.4 ML DISP.SYRIN SQ SCH (12:35)
[2019-02-14 12:36] VITALS: BP 117/74; PULSE 82; TEMP 98.6
[2019-02-14] MEDS ORDERED: PT OWN MED DRAWER 7, Y5N ONE (13:27)
--- NOTE | 2019-02-14 14:31 | PN ---
Progress Note (short form) - Note Progress Note: Patient discharged prior to reeveluation. For outpatient follow-up. Problem List - Problems (1) Vomiting and diarrhea Code(s): R11.10 - VOMITING, UNSPECIFIED; R19.7 - DIARRHEA, UNSPECIFIED
--- NOTE | 2019-02-14 17:38 | DS ---
Physical Exam: SUBJECTIVE: Patient seen and examined at bedside. No acute events. Feels well. OBJECTIVE: Vital Signs Period Temp Pulse Resp BP Sys/Pena Pulse Ox Last 24 Hr 98.1 F-98.6 F 82-110 18-20 116-122/68-74 PHYSICAL EXAM Gen: AAOx3, NAD HEENT: NCAT, EOMI Neck: supple, no jvd Cardio: rrr, normal s1s2, no mrg Pulm: cta b/l Abd: soft, nontender, nondistended Ext: no edema LABS Laboratory Results - last 24 hr 02/14/19 02/14/19 02/14/19 06:00 06:00 06:00 WBC RBC Hgb Hct MCV MCH MCHC RDW Plt Count MPV ESR 98 H Sodium 138 Potassium 4.4 Chloride 106 Carbon Dioxide 27 Anion Gap 6 L BUN 6.6 L Creatinine 0.5 L Est GFR (CKD-EPI)AfAm 154.81 Est GFR (CKD-EPI)NonAf 133.57 Random Glucose 105 Calcium 9.1 C-Reactive Protein 6.7 H HIV 1&2 Antibody Screen Negative HIV P24 Antigen Negative 02/14/19 06:00 WBC 8.0 RBC 3.80 Hgb 10.3 L Hct 31.6 L MCV 83.3 MCH 27.0 MCHC 32.5 RDW 14.0 Plt Count 477 H MPV 7.3 L ESR Sodium Potassium Chloride Carbon Dioxide Anion Gap BUN Creatinine Est GFR (CKD-EPI)AfAm Est GFR (CKD-EPI)NonAf Random Glucose Calcium C-Reactive Protein HIV 1&2 Antibody Screen HIV P24 Antigen HOSPITAL COURSE: Date of Admission:02/09/19 Date of Discharge: 02/14/19 Pt is a 28 y/o F with abdominal pain, profuse watery diarrhea, high fevers, one episode of vomiting for 6 days. The patient had numerous negative stool studies. She described exposure to C.diff, but studies were negative. Negative studies include C.diff studies, stool for ova and parasites, stool culture, norovirus, rotavirus, parasites. She was treated with ampicillin, rocephin, metronidazole, and then Abx were discontinued. The patient was seen by ID and GI. Throughout her stay, her diarrhea improved greatly and her fevers subsided. Minutes to complete discharge: 30 Discharge Summary Reason For Visit: URINARY TRACT INFECTION, DIARRHEA, NAUSEA AND Condition: Stable - Instructions Diet, Activity, Other Instructions: You were in the hospital because of gastroenteritis. MEDICATIONS: Miconazole vaginal suppository for 2 more doses (today and tomorrow) INSTRUCTIONS: Following stool studies are pending: Isomear, Norovirus, AFB smear. You can have your doctor follow up on results. Low residue diet. Advise rest and plenty of hydration including sports electrolyte drinks. Resume activities as tolerated. FOLLOW UP: With Primary care doctor in [address] Montelongo in 1-2 weeks If your symptoms get worse (like high fever or profuse diarrhea), fevers, chills , blood in vomitus or stools or any new concerns, return to the emergency department. Referrals: Sukhwinder Carpenter MD [Primary Care Provider] - Vel Montelongo DO [Staff Physician] - Drea Mccray MD [Staff Physician] - Disposition: HOME - Home Medications Comprehensive Discharge Medication List: Ambulatory Orders Miconazole Nitrate [Miconazole 3] 200 mg PV HS #2 supp.vag 02/14/19 This patient is new to me today: No Emergency Visit: No Critical Care patient: No - Discharge Referral Referred to [facility] No ATTENDING PHYSICIAN STATEMENT I saw and evaluated the patient. I reviewed the resident's note and discussed the case with the resident. I agree with the resident's findings and plan as documented. SUBJECTIVE: OBJECTIVE: ASSESSMENT AND PLAN:
== END 2019-02-14 15:09 | disposition home or self-care (01) | DRG 463 ==
LOC: JER 16:26 → JERBED 21:52 → J8W 02-10 19:49
PROVIDERS: ADMIT Internal Medicine; ATTEND Hospitalist
DX: N39.0 Urinary tract infection, site not specified (principal); K52.89 Other specified noninfective gastroenteritis and colitis; R00.0 Tachycardia, unspecified; D72.829 Elevated white blood cell count, unspecified; R11.2 Nausea with vomiting, unspecified; E66.3 Overweight; Z68.29 Body mass index [BMI] 29.0-29.9, adult; E86.0 Dehydration; E87.6 Hypokalemia; E83.39 Other disorders of phosphorus metabolism; R50.9 Fever, unspecified; L29.8 Other pruritus
CPT/HCPCS: 36415; 71046-TC-FY; 74177-TC; 80048; 80053; 81003; 83690; 83735; 83993; 84100; 84703; 85025; 85027; 85651; 86140; 86850; 86900; 86901; 87040; 87045; 87046; 87086; 87116; 87177; 87205; 87206; 87207; 87209; 87324; 87328; 87329; 87389; 87449; 87798; 87899; 93005; 93010; 99285-25; J0131; J7030

== ENCOUNTER 2019-08-06 13:54 | Emergency (ER) | payer OTHER ==
[2019-08-06 13:59] VITALS: BP 139/87; PULSE 101; TEMP 98.7; BMI 30.2
--- NOTE | 2019-08-06 14:16 | PDOC ---
History of Present Illness - General Chief Complaint: Respiratory Stated Complaint: COUGH Time Seen by Provider: 08/06/19 14:02 History Source: Patient - History of Present Illness Timing/Duration: reports: other Associated Symptoms: reports: cough, fever/chills Past History - Past Medical History Allergies/Adverse Reactions: Allergies Allergy/AdvReac Type Severity Reaction Status Date / Time No Known Allergies Allergy Verified 08/06/19 13:59 Home Medications: Ambulatory Orders Miconazole Nitrate [Miconazole 3] 200 mg PV HS #2 supp.vag 02/14/19 COPD: No Thyroid Disease: No - Immunization History Immunization Up to Date: Yes - Psycho Social/Smoking Cessation Hx Smoking History: Never smoked Have you smoked in the past 12 months: No Hx Alcohol Use: Yes (social drinker) Drug/Substance Use Hx: No Substance Use Type: None Hx Substance Use Treatment: No Review of Systems - Review of Systems Constitutional: Yes: Fever HEENTM: No: Ear Pain, Throat Pain Respiratory: Yes: Cough. No: Shortness of Breath, Wheezing Cardiac (ROS): No: Chest Pain *Physical Exam - Vital Signs Last Vital Signs Temp Pulse Resp BP Pulse Ox 98.7 F 101 H 18 139/87 98 08/06/19 13:57 08/06/19 13:57 08/06/19 13:57 08/06/19 13:57 08/06/19 13:57 - Physical Exam General Appearance: Yes: Appropriately Dressed. No: Apparent Distress HEENT: positive: Normal ENT Inspection, Normal Voice, TMs Normal, Pharynx Normal. negative: Scleral Icterus (R), Scleral Icterus (L) Neck: positive: Supple. negative: Lymphadenopathy (R), Lymphadenopathy (L) Respiratory/Chest: positive: Lungs Clear, Normal Breath Sounds. negative: Respiratory Distress Cardiovascular: positive: Regular Rate, S1, S2 Integumentary: positive: Dry, Warm Neurologic: positive: Fully Oriented, Alert, Normal Mood/Affect Medical Decision Making - Medical Decision Making 08/06/19 14:14 28-year-old female, no significant history, here with non-productive cough with low-grade fever x3 days. No hemoptysis, shortness of breath or chest pain. Patient states she is a nurse at [employer] and because of her current symptoms and that she traveled to [place] over a month ago, her employer recomme sylvia that she be evaluated for ?kimball virus see exam M/l URI Exam wnl As d/w pt, pt does not meet criteria for testing for the coronavirus as discussed in length, told that if her employer is still concerned, that they should contact the Department of Health for further recommendations In the meantime, will dc with supportive treatment Discharge - Discharge Information Problems reviewed: Yes Clinical Impression/Diagnosis: Cough Condition: Good Disposition: HOME - Follow up/Referral Referrals: Sukhwinder Carpenter MD [Primary Care Provider] - - Patient Discharge Instructions Patient Printed Discharge Instructions: Cough Additional Instructions: You most likely have a viral URI. Rest, drink plenty of fluids and take medication [id number] as needed You do not meet criteria for kimball virus testing and in any event testing is not done in the ED You can discuss this with your employer and they can talk to the Department of Health as needed - Post Discharge Activity Work/Back to School Note: Back to Work
== END 2019-08-06 14:15 | disposition home or self-care (01) ==
LOC: JERFT 13:54
DX: R05 Cough (principal)
CPT/HCPCS: 99282-25

== ENCOUNTER 2020-10-07 10:32 | Emergency (ER) | payer OTHER ==
[2020-10-07 11:04] VITALS: BP 113/60; PULSE 109; TEMP 98.3; BMI 32.1
== END 2020-10-07 12:07 | disposition home or self-care (01) ==
LOC: JER 10:32
DX: J06.9 Acute upper respiratory infection, unspecified (principal)
CPT/HCPCS: 99283-25; C9803; U0003; U0005

== ENCOUNTER 2022-05-09 00:13 | Emergency (ER) | payer OTHER ==
[2022-05-09 00:29] VITALS: BP 123/86; PULSE 87; RESP 20; TEMP 98.6; BMI 33.0
[2022-05-09] MEDS ORDERED: morphine CARPU-JECT 4 MG/1 ML DISP.SYRIN IM ONE (00:52)
[2022-05-09] MEDS ORDERED: morphine SULFATE 4 MG/ML VIAL ONE (01:00)
== END 2022-05-09 02:28 | disposition home or self-care (01) ==
LOC: JER 00:13
PROC: 3E033NZ Introduction of Analgesics, Hypnotics, Sedatives into Peripheral Vein, Percutaneous Approach (ICD-10-PCS; principal; 2022-05-09)
PROC: 2W39X1Z Immobilization of Left Upper Extremity using Splint (ICD-10-PCS; 2022-05-09)
DX: S59.902A Unspecified injury of left elbow, initial encounter (principal); S50.02XA Contusion of left elbow, initial encounter; W06.XXXA Fall from bed, initial encounter
CPT/HCPCS: 73060-TC-LT-FY; 73070-TC-LT-FY; 73090-TC-LT-FY; 99285-25

== ENCOUNTER 2023-05-25 13:45 | Emergency (ER) | payer BC, OTHER ==
[2023-05-25 16:11] VITALS: BP 129/84; PULSE 97; RESP 18; TEMP 98.4; BMI 30.2
[2023-05-25] MEDS ORDERED: KETOROLAC TROMETHAMINE 30 MG/1 ML VIAL IM ONE (16:25)
[2023-05-25] MEDS ORDERED: KETOROLAC TROMETHAMINE 30 MG/1 ML VIAL ONE (16:28)
== END 2023-05-25 17:09 | disposition home or self-care (01) ==
LOC: JERFT 13:45
PROC: 3E0233Z Introduction of Anti-inflammatory into Muscle, Percutaneous Approach (ICD-10-PCS; principal; 2023-05-25)
DX: S83.91XA Sprain of unspecified site of right knee, initial encounter (principal); S80.01XA Contusion of right knee, initial encounter; S60.222A Contusion of left hand, initial encounter; W18.39XA Other fall on same level, initial encounter; Y92.9 Unspecified place or not applicable
CPT/HCPCS: 73130-TC-LT-FY; 73562-TC-RT-FY; 84703; 99284-25